=== PATIENT | female | born 1930 | race Asian ===

== ENCOUNTER 2019-03-27 15:57 | Inpatient (IN) | payer OTHER, BC ==
[~2019-03-27] VITALS: Ht 149.9 cm; Wt 43.3 kg
[2019-03-27] MEDS ORDERED: LORazepam 2 MG/ML VIAL IVP ONE (17:45)
[2019-03-27 17:56] LABS: BASOPHILS # (AUTO) 0.1 K/uL (0.0-0.2); BASOPHILS % (AUTO) 1.1 % (0.0-2.0); EOSINOPHILS # (AUTO) 0.2 K/uL (0.0-0.4); EOSINOPHILS % (AUTO) 2.4 % (0.0-4.0); HEMATOCRIT 39.1 % (36-48); HEMOGLOBIN 12.9 g/dL (12.0-16.0); LYMPHOCYTES # (AUTO) 1.5 K/uL (1.0-5.5); MEAN CORPUSCULAR HEMOGLOBIN 30 pg (27-31); MEAN CORPUSCULAR HGB CONC 33 % (32-36); MEAN CORPUSCULAR VOLUME 92 fL (79.0-98.0); MONOCYTES # (AUTO) 0.6 K/uL (0.0-1.0); MONOCYTES % (AUTO) 6.6 % (1.7-9.3); NEUTROPHILS % (AUTO) 73.9 % (40.0-70.0); PLATELET COUNT (AUTO) 358 K/uL (130-430); RED BLOOD CELL COUNT(AUTO) 4.27 MIL/uL (4.2-6.2); RED CELL DISTRIBUTION WIDTH 13.8 % (9.0-15.0); WHITE BLOOD COUNT (AUTO) 9.5 K/uL (4.8-10.8)
[2019-03-27 18:11] LABS: ANION GAP 8 (5-15); CALCIUM 9.9 mg/dL (8.4-11.0); CHLORIDE 104 mmol/L (98-107); CREATININE 0.95 mg/dL (0.55-1.30); GLUCOSE 106 mg/dL (70-99); POTASSIUM 3.9 mmol/L (3.5-5.1); SODIUM SERUM 137 mmol/L (136-145); UREA NITROGEN, BLOOD 16 mg/dL (8-21)
[2019-03-27 18:17] LABS: ALANINE AMINOTRANSFERASE 15 U/L (12-78); ASPARTATE AMINOTRANSFERASE 21 U/L (10-37); TOTAL BILIRUBIN 0.2 mg/dL (0.0-1.0)
[2019-03-27 18:18] LABS: ACETAMINOPHEN < 1 ug/mL (1-30); ALCOHOL, BLOOD < 3 mg/dL (<10)
--- NOTE | 2019-03-27 19:00 | NUR ---
Patient to ER bed 02 to gown for evaluation. Side rails up.
--- NOTE | 2019-03-27 19:03 | NUR ---
Pt brought by ambulance, Alert x1 , combative, pt presents to ER for medical clearance prior transfering to [facility] due to sych, pt arrived in restrains , skin pink and warm, cap refill <3,VSS
--- NOTE | 2019-03-27 19:05 | NUR ---
100 CC CLEAR URINE COLLECTED.
--- NOTE | 2019-03-27 19:06 | NUR ---
Dr Antonio at bedside examining patient
[2019-03-27 19:33] LABS: BARBITURATE, URINE NEGATIVE (NEG <=200); BENZODIAZEPINE, URINE POSITIVE (NEG <=150); CANNABINOID, URINE NEGATIVE (NEG <=50); COCAINE, URINE NEGATIVE (NEG <=150); METHAMPHETAMINES SCREEN,URINE NEGATIVE (NEG <=500); OPIATE, URINE NEGATIVE (NEG <=100); PHENCYCLIDINE SCREEN,URINE NEGATIVE (NEG <=25); UR TRICYCLIC ANTIDEPRESSANTS NEGATIVE (NEG <=300); URINE AMPHETAMINE NEGATIVE (NEG <=500); URINE METHADONE NEGATIVE (NEG <=200); URINE OXYCODONE SCREEN NEGATIVE (NEG <=100); URINE PROPOXYPHENE SCREEN NEGATIVE (NEG <=300)
--- NOTE | 2019-03-27 20:30 | NUR ---
Pt resting in ed bed comfortably, agitated, yelling inconsolably and intermittently. Pulses and circulation checked WNL.
--- NOTE | 2019-03-27 21:00 | NUR ---
Pt resting in ed bed comfortably, agitated, yelling inconsolably and intermittently. Pulses and circulation checked WNL.
--- NOTE | 2019-03-27 21:30 | NUR ---
Pt resting in ed bed comfortably, agitated, yelling inconsolably and intermittently. Pulses and circulation checked WNL.
[2019-03-27] MEDS: NORMAL SALINE 5 ML DISP.SYRIN IVF SCH (22:00)
--- NOTE | 2019-03-27 22:00 | NUR ---
Pt resting in ed bed comfortably, agitated, yelling inconsolably and intermittently. Pulses and circulation checked WNL.
[2019-03-27] MEDS ORDERED: MEMA5TAB PO (22:27)
[2019-03-27] MEDS ORDERED: DONE10TA44 PO (22:27)
[2019-03-27] MEDS ORDERED: AMLO2.5T2 PO (22:27)
[2019-03-27] MEDS ORDERED: OMEG1CAP PO (22:27)
[2019-03-27] MEDS ORDERED: ALBU2.5V7 INH (22:27)
[2019-03-27] MEDS ORDERED: LIP10 PO (22:27)
[2019-03-27] MEDS ORDERED: MORP15TA PO (22:27)
[2019-03-27] MEDS ORDERED: NA P133E41 RC (22:30)
[2019-03-27] MEDS ORDERED: DOCU-144 PO (22:30)
--- NOTE | 2019-03-27 22:45 | NUR ---
Pt soiled self. Linens and gown changed, pt cleaned.
--- NOTE | 2019-03-27 23:09 | NUR ---
pt moved to bed 2.
--- NOTE | 2019-03-27 23:10 | NUR ---
# 20 gauge angiocath placed to LAC. Use of asceptic technique. Opsite placed over site. Blood return noted. Blood for lab drawn from site. Flushed with 10 cc of normal saline. No evidence of infiltration noted. Patient tolerated well.
--- NOTE | 2019-03-27 23:32 | NUR ---
# 16 FR [place] catheter with use of sterile technique. Immediate return of 100 cc pale flocculent urine noted. Bedside drainage bag placed below level of bladder. Urine sample collected and sent to lab. Pt tolerated procedure well, pt continues to exhibit agitation and combativeness. Patient unable to toilet self. MD Order recieved
[2019-03-28] VITALS (7 sets, daily range): BP systolic 91–161
--- NOTE | 2019-03-28 00:32 | NUR ---
Pt resting in ED bed. Restraints released and patient moved through full range of motion. Good pulse, motor, sensory intact to all extremeties. Patient attempted to pinch and scratch staff. Pt Agitated.
--- NOTE | 2019-03-28 00:35 | NUR ---
Patient will be admitted to care of [facility]. Admitted to Med/Surg unit. Will go to room 121B. Belongings list completed. Complete and up to date summary report printed. Report to be given at bedside with opportunity for questions.
--- NOTE | 2019-03-28 00:36 | NUR ---
Transfer to [facility]. IV present no sign or symptom of infiltration.
--- NOTE | 2019-03-28 01:05 | NUR ---
ADMISSION NOTE Received patient from ER via gurney. Patient admitted with diagnosis of Left Knee Sepsis, Encephalopathy & Schizoprenia. Patient is awake, alert, oriented X 1. Patient oriented to hospital room, call light, toileting, pain management and safety-teach back done. Patient informed that BEAR Lee will be primary nurse and that their room number is 121B. Personal belongings checked and Belongings List documented. Call light within reach.
--- NOTE | 2019-03-28 01:50 | NUR ---
CONSULT: CALLED FOR DR. JOLEEN HOLLAND I SPOKE WITH JOSEPH OCHOA REASON FOR CONSULT: LEFT KNEE SEPSIS REQUESTING CONSULT: DR. BERNARD RN INTERVENTIONAL PHONE NUMBER: [phone]
--- NOTE | 2019-03-28 01:52 | NUR ---
CONSULT: CONSULT CALLED FOR DR. NORRIS I SPOKE WITH JOSEPH OCHOA REASON FOR CONSULT: PSYCHIATRIC EVALUATION REQUESTING CONSULT: DR. BERNARD POULTRY PICKING MACHINE TENDER PHONE NUMBER: [phone]
[2019-03-28] MEDS: NORMAL SALINE 5 ML DISP.SYRIN IVF SCH ×3 (06:00→21:13)
[2019-03-28 06:39] LABS: BASOPHILS # (AUTO) 0.1 K/uL (0.0-0.2); BASOPHILS % (AUTO) 1.3 % (0.0-2.0); EOSINOPHILS # (AUTO) 0.3 K/uL (0.0-0.4); HEMATOCRIT 35.4 % (36-48); HEMOGLOBIN 11.9 g/dL (12.0-16.0); LYMPHOCYTES # (AUTO) 1.6 K/uL (1.0-5.5); LYMPHOCYTES % (AUTO) 18.6 % (20.5-51.5); MEAN CORPUSCULAR HEMOGLOBIN 30 pg (27-31); MEAN CORPUSCULAR HGB CONC 34 % (32-36); MEAN CORPUSCULAR VOLUME 90 fL (79.0-98.0); MONOCYTES # (AUTO) 0.7 K/uL (0.0-1.0); MONOCYTES % (AUTO) 7.5 % (1.7-9.3); NEUTROPHILS # (AUTO) 6.1 K/uL (1.8-7.7); NEUTROPHILS % (AUTO) 69.6 % (40.0-70.0); PLATELET COUNT (AUTO) 362 K/uL (130-430); RED BLOOD CELL COUNT(AUTO) 3.95 MIL/uL (4.2-6.2); RED CELL DISTRIBUTION WIDTH 13.8 % (9.0-15.0); WHITE BLOOD COUNT (AUTO) 8.7 K/uL (4.8-10.8)
[2019-03-28 06:57] LABS: ANION GAP 4 (5-15); CALCIUM 9.1 mg/dL (8.4-11.0); CHLORIDE 104 mmol/L (98-107); CREATININE 0.96 mg/dL (0.55-1.30); GLUCOSE 84 mg/dL (70-99); POTASSIUM 3.4 mmol/L (3.5-5.1); SODIUM SERUM 137 mmol/L (136-145); UREA NITROGEN, BLOOD 13 mg/dL (8-21); VANCOMYCIN,RANDOM 21.4 ug/mL
--- NOTE | 2019-03-28 07:45 | NUR ---
Neurovascular/safety Patient awake/alert oriented to her name nod rarely talk but clear calm , on bilateral risk restraints, release on cleaning repositioned , left leg with cast dry/clean , kept elevated to pillow able to wiggle toes warm to touch denies any pain, safety/fall precaution initiated.
--- NOTE | 2019-03-28 10:25 | NUR ---
Nutrition Update Alexis Scale 15 noted. Pt admitted for L knee sepsis, schizophrenia, encephalopathy. Diet: [facility] BMI: 19.3 kg/m2 RD to follow per nutrition care standards.
[2019-03-28] MEDS ORDERED: MEMANTINE HCL 5 MG TABLET PO ONE (10:30)
[2019-03-28] MEDS ORDERED: MORPHINE SULFATE 30 MG Immediate Release TABLET PO SCH (10:30)
[2019-03-28] MEDS ORDERED: [UNRECOGNIZED DRUG - OTHER] PO SCH (10:30)
[2019-03-28] MEDS ORDERED: ALBUTEROL SULFATE 0.083% 2.5 MG/3 ML VIAL.NEB INH PRN (10:30)
[2019-03-28] MEDS ORDERED: DOCUSATE SODIUM 100 MG CAPSULE PO ONE (10:30)
[2019-03-28] MEDS ORDERED: OMEGA PO SCH (10:30)
[2019-03-28] MEDS ORDERED: amLODIPine BESYLATE 5 MG TABLET PO ONE (10:30)
[2019-03-28] MEDS ORDERED: SODIUM PHOSPHATE,MONO-DIBASIC 133 ML ENEMA RC SCH (10:30)
[2019-03-28] MEDS ORDERED: FISH OIL PO SCH (10:30)
[2019-03-28] MEDS ORDERED: FATTY ACIDS PO SCH (10:30)
[2019-03-28] MEDS: VANCOMYCIN HCL 500 MG in NS 100 ML IV SCH (10:50)
--- NOTE | 2019-03-28 11:30 | NUR ---
Due antibiotic completed with out adverse reaction,left leg kept elevated to pillow with cast dry/clean able to wiggle toes no swelling warm to touch denies any pain.
--- NOTE | 2019-03-28 13:00 | NUR ---
Patient is calm and cooperative released from restraints for lunch eat by herself no aspiration with good appetite, perineal care given kept dry/clean , skin cream barrier applied to sacral area no pressure sore , repositioned.
--- NOTE | 2019-03-28 17:30 | NUR ---
Patient awake/calm , granddaughter Zoe at the bedside feeding home foods tolerates well, then patient slept , safety/fall precaution initiated, on bilateral soft wrist restraints.
--- NOTE | 2019-03-28 18:42 | NUR ---
CONSULTATION PAGED/CALLED Reason for Consultation: post patellar fx with cast, infected left knee Person Who was Notified: Alma Consulting Physician: Dr. Gambino; Dr. Dockery Mold Carpenter Specialty: ortho Ordering Physician: Dr. Obando
--- NOTE | 2019-03-28 19:50 | NUR ---
PM SHIFT ASSESSMENT Recieved patient lying in bed, aox2, vital signs stable, denies any pain or discomfort at this time, IV line to left ac intact and patent, saline locked, patient has bilateral wrist restraints, patient is quiet and cooperative at this time, repositioned for comfort, fall and isolation precautions in place, will monitor.
[2019-03-28] MEDS: ATORVASTATIN 10 MG TABLET PO SCH (21:13)
[2019-03-28] MEDS: DONEPEZIL HCL 5 MG TABLET (ARICEPT) PO SCH (21:13)
[2019-03-28] MEDS: DOCUSATE SODIUM 100 MG CAPSULE PO SCH (21:13)
[2019-03-28] MEDS: MEMANTINE HCL 5 MG TABLET PO SCH (21:13)
--- NOTE | 2019-03-28 21:30 | NUR ---
RN ROUNDS/MED PASS Patient awake, denies any pain or discomfort at this time, due medications administered, aspiration precautions maintained, paient repositioned for comfort, bilateral wrist restraints in place, will monitor.
--- NOTE | 2019-03-28 23:38 | NUR ---
RN ROUNDS Patient asleep, breathing is even and unlabored, vitals stable, repositioned for comfort, safety measures in place, will closely monitor.
[2019-03-29 01:40] VITALS: BP_SYST 126
--- NOTE | 2019-03-29 01:51 | NUR ---
RN ROUNDS Patient asleep, breathing is even and unlabored, repositioned for comfort, bilateral wrist restraints in place, safety measures in place, will closely monitor.
--- NOTE | 2019-03-29 04:07 | NUR ---
RN ROUNDS Patient continues to sleep, breathing is even and unlabored, repositioned for comfort, bilateral wrist restraints in place, safety measures in place, will closely monitor.
--- NOTE | 2019-03-29 05:48 | NUR ---
RN ROUNDS Patient awake, denies any pain or discomfort, compliant, hygiene care provided, repositioned for comfort, safety measures in place, will closely monitor.
[2019-03-29 06:15] LABS: BASOPHILS # (AUTO) 0.1 K/uL (0.0-0.2); BASOPHILS % (AUTO) 1.1 % (0.0-2.0); EOSINOPHILS # (AUTO) 0.4 K/uL (0.0-0.4); EOSINOPHILS % (AUTO) 4.4 % (0.0-4.0); HEMATOCRIT 33.3 % (36-48); LYMPHOCYTES % (AUTO) 21.3 % (20.5-51.5); MEAN CORPUSCULAR HEMOGLOBIN 30 pg (27-31); MEAN CORPUSCULAR HGB CONC 33 % (32-36); MEAN CORPUSCULAR VOLUME 91 fL (79.0-98.0); MONOCYTES # (AUTO) 0.8 K/uL (0.0-1.0); MONOCYTES % (AUTO) 8.2 % (1.7-9.3); PLATELET COUNT (AUTO) 341 K/uL (130-430); RED BLOOD CELL COUNT(AUTO) 3.68 MIL/uL (4.2-6.2); RED CELL DISTRIBUTION WIDTH 13.5 % (9.0-15.0); WHITE BLOOD COUNT (AUTO) 9.3 K/uL (4.8-10.8)
[2019-03-29 06:25] LABS: ANION GAP 4 (5-15); CALCIUM 8.8 mg/dL (8.4-11.0); CHLORIDE 104 mmol/L (98-107); CREATININE 1.99 mg/dL (0.55-1.30); GLUCOSE 88 mg/dL (70-99); POTASSIUM 3.6 mmol/L (3.5-5.1); SODIUM SERUM 134 mmol/L (136-145); UREA NITROGEN, BLOOD 36 mg/dL (8-21)
--- NOTE | 2019-03-29 07:45 | NUR ---
Ortho consult called: for Dr. Gambino, regarding post patellar fracture/infected, ordered by Dr. Gallardo, spoke w/ Starr. Exchange spoke with Dr. Gambino and informed me he has surgery schedule till 1230, but he will come see the patient.
[2019-03-29 08:20] VITALS: BP_SYST 164
--- NOTE | 2019-03-29 08:20 | NUR ---
OPENING NOTE PATIENT RESTING IN BED, A&OX1, REORIENTED TO PLACE, TIME AND EVENT, ASSESSMENT COMPLETE, CONTINUING TO MONITORING CALL LIGHT WITHIN REACH, BED IN LOWEST POSITION, THREE SIDE RAILS UP, BED ALARM ON, FALL AND ASPIRATION PRECAUTIONS IN PLACE, ISOLATION PRECAUTIONS IN PLACE, RESTRAINTS IN PLACE.
[2019-03-29] MEDS: DOCUSATE SODIUM 100 MG CAPSULE PO SCH ×2 (09:00→20:45)
[2019-03-29] MEDS: MEMANTINE HCL 5 MG TABLET PO SCH ×2 (09:00→20:45)
--- NOTE | 2019-03-29 09:00 | NUR ---
MEDICATIONS PATIENT RESTING IN BED, ADMINISTERED MEDICATIONS, PATIENT TOLERATED WELL, CONTINUING TO MONITOR, CALL LIGHT WITHIN REACH, BED IN LOWEST POSITION, THREE SIDE RAILS UP, BED ALARM ON, BED CLOSE TO NURSING STATION, FALL, ASPIRATION, AND ISOLATION PRECAUTIONS IN PLACE, RESTRAINTS IN PLACE.
--- NOTE | 2019-03-29 09:00 | NUR ---
DISTRICT AGENT: MORNING MEDS GIVEN, PER ORDERED BY Piper, TOLERATED WELL, PT IS [place]GR[place], BUT UNDERSTANDS SOME KYRGYZ, ABLE TO COMMUNICATE NEEDS, CALL LIGHT REMAINS WITHIN REACH, WILL CONT' TO MONITOR AND ASSESS.
[2019-03-29] MEDS: amLODIPine BESYLATE 5 MG TABLET PO SCH (09:02)
[2019-03-29] MEDS: VANCOMYCIN HCL 500 MG in NS 100 ML IV SCH (10:42)
[2019-03-29] MEDS: risperiDONE 0.25 MG TABLET (RisperDAL) PO SCH (10:42)
--- NOTE | 2019-03-29 10:55 | NUR ---
ROUNDS/ MEDICATIONS PATIENT RESTING IN BED, CALM, NO SIGNS OF DISTRESS, ADMINISTERED MEDICATION PER MD ORDER, PATIENT TOLERATED WELL, IV LINE IS PATENT AND INFUSING WELL, CONTINUING TO MONITOR, CALL LIGHT WITHIN REACH, BED AT LOWEST POSITION, BED ALARM ON, BED CLOSE TO NURSING STATION, FALL, ASPIRATION, AND ISOLATION PRECAUTIONS IN PLACE, RESTRAINTS IN PLACE.
--- NOTE | 2019-03-29 11:00 | NUR ---
Physical Therapy order has been received and the chart reviewed. Spoke with the RN. Awaiting ortho consult for weight bearing status and further treatment plan.
[2019-03-29] MEDS: NORMAL SALINE 5 ML DISP.SYRIN IVF SCH ×3 (11:25→20:45)
--- NOTE | 2019-03-29 12:00 | NUR ---
NURSES NOTES: PT REMAINS STABLE, RESTRAINTS CHECKED FOR COMFORT AND POSITION, PULSES PALPABLE, NO S/S OF DISTRESS, WILL CONT' TO MONITOR AND ASSESS.
--- NOTE | 2019-03-29 12:08 | NUR ---
PATIENT RESTING QUIETLY IN BED, NO SIGNS OF DISTRESS, CONTINUING TO MONITOR, BED IN LOWEST POSITION, THREE SIDE RAILS UP, CALL LIGHT WITHIN REACH, BED ALARM ON, FALL, ASPIRATION AND ISOLATION PRECAUTIONS IN PLACE.
[2019-03-29 12:11] VITALS: BP_SYST 146
--- NOTE | 2019-03-29 13:29 | NUR ---
RN rounds patient resting in bed, calm at this time, finished eating lunch, no other needs at this time, continuing to monitor, bed in lowest position, three side rails up, bed alarm on, bed close to nursing station, call light within reach, fall, aspiration and isolation precautions in place.
--- NOTE | 2019-03-29 13:36 | NUR ---
Nutrition Assessment (short note d/t high patient load) A - RD reviewed pertinent nutrition-related info via EMR (physician notes/nursing notes/labs/meds/nursing care trends/care activity). Admission Dx: L knee sepsis, schizophrenia, encephalopathy PMH: dementia, HTN, depression, hallucination, schizophrenia, CKD, COPD, cerebral ischemia, anxiety per physician notes Current Diet Order/Nutrition Support: CCHO x 1 day Ht: 59"/4'11" Wt: 95#/43 kg IBW: 98#/45 kg %IBW: 97% UBW: N/A %UBW: N/A BMI: 19.3 kg/m2 (underweight, low for geriatric age) Subjective Info: Pt was seen resting in bed, covered in blankets at time of RD visit. Pt was confused, and unable to answer RD verbal interview questions. Bedscale wt taken: 98# -- closely consistent w/ documented wt. Per RN, pt has been eating well, but requires assistance w/ meals. RN also reported that pt has an infected L knee s/p old Sx. Pt may require additional nutrition for optimal healing. Per EMR, PO intake records indicate 87% average PO intakes x3 meals. RN reported that pt has no chewing/swallowing difficulty. Pt is not appropriate for nutrition education. ESTIMATED NUTRITIONAL NEEDS CALORIES/DAY: 1909-0104 kcal/day (30-35 kcal/kg CBW for infection) PROTEIN/DAY: 52-65 gm/day (1.2-1.5 gm/kg CBW for infection) FLUID/DAY: 1-1.3 L/day (25-30 ml/kg CBW for geriatric maintenance) D - Increased nutritional needs related to metabolic demands as evidenced by estimated nutritional requirements for infection. I - Recommend CCHO diet w/ Glucerna BID (ONS provides 440 kcal/day, 20 gm protein/day) M - Monitor appetite and PO intakes w/ goal of pt meeting at least 85% of estimated nutritional needs, labs trending WNL, normal GI function, and skin integrity/wt maintenance E - Low Risk; F/U within 7 days
--- NOTE | 2019-03-29 13:37 | NUR ---
SS NOTES: HOSPICE MASSAGE THERAPIST was referred to do a collateral for DCP and assessment. HOSPICE MASSAGE THERAPIST phoned grand daughter Zoe Reed @ [phone] (point of contact). Pt is an 88 y/o Ni[place] female who came from [facility]. Pt has been staying at the [facility] since 03/16/19 and prior to that the patient was a resident at [facility] for 1-2 years. Pt was transferred to [facility] due to needing an isolation room, wound care, cast and IV. Per grand daughter pt has SSI of $700's/month. Pt does not have an advanced directive and is not conserved. Per grand dtr, pt does not have schizophrenia but has dementia and is taking Seroquel for it. Grand daughter stated pt speaks Niuean only and prefers for pt to be transferred to facilities (around [facility], [facility]) with the same Ni[place]an population due to language barrier.
--- NOTE | 2019-03-29 13:45 | NUR ---
Dietitian Recommendations * Recommend [facility] diet w/ Glucerna BID (ONS provides 440 kcal/day, 20 gm protein/day) LP, RD Please refer to Nutrition Assessment for details.
[2019-03-29 14:16] LABS: BASOPHILS # (AUTO) 0.1 K/uL (0.0-0.2); BASOPHILS % (AUTO) 1.3 % (0.0-2.0); EOSINOPHILS # (AUTO) 0.3 K/uL (0.0-0.4); EOSINOPHILS % (AUTO) 3.5 % (0.0-4.0); HEMATOCRIT 34.3 % (36-48); HEMOGLOBIN 11.4 g/dL (12.0-16.0); LYMPHOCYTES # (AUTO) 1.6 K/uL (1.0-5.5); MEAN CORPUSCULAR HEMOGLOBIN 30 pg (27-31); MEAN CORPUSCULAR HGB CONC 33 % (32-36); MEAN CORPUSCULAR VOLUME 90 fL (79.0-98.0); MONOCYTES # (AUTO) 0.7 K/uL (0.0-1.0); MONOCYTES % (AUTO) 7.7 % (1.7-9.3); NEUTROPHILS # (AUTO) 6.4 K/uL (1.8-7.7); NEUTROPHILS % (AUTO) 70.5 % (40.0-70.0); PLATELET COUNT (AUTO) 338 K/uL (130-430); RED BLOOD CELL COUNT(AUTO) 3.82 MIL/uL (4.2-6.2); WHITE BLOOD COUNT (AUTO) 9.1 K/uL (4.8-10.8)
--- NOTE | 2019-03-29 14:39 | NUR ---
RN rounds patient resting in bed, awake, calm, denies pain, provided with water, patient tolerated well, aspiration precautions in place, no other needs at this time, continuing to monitor, bed in lowest position, three side rails up, bed alarm on, bed close to nursing station, fall, aspiration and isolation precautions in place.
--- NOTE | 2019-03-29 15:00 | NUR ---
NURSES NOTES: PT REMAINS STABLE, AWAKE INTERMITTENTLY, RESTRAINTS REMOVED FOR COMFORT, REPOSITIONED AT THIS TIME, SKIN INTACT, NO INDICATION OF PAIN, WILL CONT' TO MONITOR AND ASSESS.
[2019-03-29 16:00] VITALS: BP_SYST 157
--- NOTE | 2019-03-29 16:08 | NUR ---
RN rounds Patient resting in bed, awake, calm, no other needs at this time, continuing to monitor, bed in lowest position, three side rails up, bed alarm on, bed close to nursing station, fall, aspiration and isolation precautions in place.
--- NOTE | 2019-03-29 19:18 | NUR ---
Closing Note Patient resting in bed, awake, all needs met, no signs of distress, no pain, will endorse report to NOC shift nurse, bed in lowest position, bed alarm on, call light within reach, three side rails up, bed close to nursing station, fall, aspiration and seizure precautions in place, isolation precautions on place.
--- NOTE | 2019-03-29 19:50 | NUR ---
Initial Notes Received handoff report from offgoing nurse at the bedside. Patient is AAOx1, resting in bed. No SOB, no acute distress, no signs of pain or facial grimacing noted. Noted patient with bowel and urinary incontinency. Provided incontinence care as needed. Patient able to turn self. Patient is now clean and dry, resting comfortably in bed. Bed is locked, lowest position, 2x side rails up, bed alarm is on. Call light within reach. Encouraged patient to call for assistance.
--- NOTE | 2019-03-29 19:55 | NUR ---
Received in repot that the patient had a keller catheter that was removed on 03/28/2019. Restraints were also discontinued on 03/29/2019 1245.
[2019-03-29 20:00] VITALS: BP_SYST 140
[2019-03-29] MEDS: ATORVASTATIN 10 MG TABLET PO SCH (20:45)
[2019-03-29] MEDS: DONEPEZIL HCL 5 MG TABLET (ARICEPT) PO SCH (20:45)
--- NOTE | 2019-03-29 22:15 | NUR ---
Patient resting comfortably in bed, AAOx1. No SOB, no acute distress, no complaints of pain. Assisted patient to turn and reposition. Call light within reach. Encouraged to call for assistance.
--- NOTE | 2019-03-30 00:26 | NUR ---
Patient is resting comfortably in bed, eyes closed. Breathing even and unlabored. Visible chest rise and fall noted. No SOB, no acute distress, no signs of pain or facial grimacing noted. Bed is locked, lowest position, 2x side rails up, bed alarm is on. Call light within reach.
[2019-03-30 01:36] VITALS: BP_SYST 130
--- NOTE | 2019-03-30 02:29 | NUR ---
PATIENT RESTING COMFORTABLY IN BED, EYES CLOSED. BREATHING EVEN AND UNLABORED WITH VISIBLE CHEST RISE AND FALL NOTED. NO SOB, NO ACUTE DISTRESS, NO SIGNS OF PAIN OR FACIAL GRIMACING NOTED. BED IS LOCKED, LOWEST POSITION, 2X SIDE RAILS UP, BED ALARM IS ON. CALL LIGHT IS WITHIN REACH.
--- NOTE | 2019-03-30 04:28 | NUR ---
Patient had an episode of bowel and urinary incontinence. Provided incontinence care. Patient is now clean and dry, resting comfortably in bed. No SOB, no acute distress, no complaints of pain at this time. Call light within reach. Encouraged to call for assistance.
[2019-03-30] MEDS: NORMAL SALINE 5 ML DISP.SYRIN IVF SCH ×3 (05:15→21:17)
--- NOTE | 2019-03-30 06:37 | NUR ---
Closing Notes Patient is resting comfortably in bed, eyes closed. Breathing even and unlabored, visible chest rise and fall noted. No SOB, no acute distress, no signs of pain or facial grimacing noted. Bed is locked, lowest position, 2x side rails up. Call light is within reach. Fall, safety precautions maintained. All needs have been met during this shift. Will endorse care to oncoming dayshift nurse.
[2019-03-30 06:42] LABS: BASOPHILS # (AUTO) 0.1 K/uL (0.0-0.2); EOSINOPHILS # (AUTO) 0.3 K/uL (0.0-0.4); HEMATOCRIT 33.4 % (36-48); HEMOGLOBIN 11.3 g/dL (12.0-16.0); LYMPHOCYTES # (AUTO) 1.4 K/uL (1.0-5.5); LYMPHOCYTES % (AUTO) 15.3 % (20.5-51.5); MEAN CORPUSCULAR HEMOGLOBIN 30 pg (27-31); MEAN CORPUSCULAR HGB CONC 34 % (32-36); MEAN CORPUSCULAR VOLUME 90 fL (79.0-98.0); MONOCYTES # (AUTO) 0.8 K/uL (0.0-1.0); MONOCYTES % (AUTO) 8.5 % (1.7-9.3); NEUTROPHILS # (AUTO) 6.8 K/uL (1.8-7.7); NEUTROPHILS % (AUTO) 72.2 % (40.0-70.0); PLATELET COUNT (AUTO) 328 K/uL (130-430); RED BLOOD CELL COUNT(AUTO) 3.73 MIL/uL (4.2-6.2); RED CELL DISTRIBUTION WIDTH 13.8 % (9.0-15.0); WHITE BLOOD COUNT (AUTO) 9.3 K/uL (4.8-10.8)
[2019-03-30 07:35] LABS: ALANINE AMINOTRANSFERASE 22 U/L (12-78); ALBUMIN 2.6 g/dL (3.4-4.8); ANION GAP 2 (5-15); ASPARTATE AMINOTRANSFERASE 24 U/L (10-37); CALCIUM 8.7 mg/dL (8.4-11.0); CHLORIDE 103 mmol/L (98-107); CREATININE 2.21 mg/dL (0.55-1.30); GLUCOSE 93 mg/dL (70-99); POTASSIUM 3.7 mmol/L (3.5-5.1); SODIUM SERUM 132 mmol/L (136-145); TOTAL BILIRUBIN 0.4 mg/dL (0.0-1.0); UREA NITROGEN, BLOOD 39 mg/dL (8-21)
[2019-03-30] MEDS: LINEZOLID 300 ML IV SCH ×2 (08:14→20:47)
[2019-03-30] MEDS: MEMANTINE HCL 5 MG TABLET PO SCH ×2 (08:14→20:47)
[2019-03-30] MEDS: amLODIPine BESYLATE 5 MG TABLET PO SCH (08:15)
[2019-03-30] MEDS: risperiDONE 0.25 MG TABLET (RisperDAL) PO SCH (08:15)
--- NOTE | 2019-03-30 08:15 | NUR ---
Opening note patient resting in bed, a/ox1, reoriented to place, time and event, assessment complete, IV line is patent and infusing well, neurovascular check complete, educated the patient recreation program coordinator light system, she nodded and pointed to the red button on the call light, bed in lowest position, three side rails up, bed alarm on, bed close to nursing station, fall, aspiration, and isolation precautions in place, continuing to monitor.
--- NOTE | 2019-03-30 08:20 | NUR ---
Medications administered by Eliana SIFUENTES, continuing to monitor the patient, bed in lowest position, three side rails up, bed alarm on, bed close to nursing station, fall, aspiration and isolation precautions in place.
[2019-03-30] MEDS: DOCUSATE SODIUM 100 MG CAPSULE PO SCH ×2 (09:00→20:47)
--- NOTE | 2019-03-30 10:30 | NUR ---
Patient attempting to get out bed patient becoming agitated, trying to get out bed, assisted patient with charge nurse Eliana SIFUENTES, to the bedside commode, patient tolerated well, assisted back into bed, bed in lowest position, three side rails up, bed alarm on, bed close to nursing station, fall, aspiration and isolation precautions in place.
--- NOTE | 2019-03-30 12:11 | NUR ---
Patient attempting to get out bed patient trying to get out of bed to use the commode, patient is unsafe to ambulate, patient is getting agitated at this time, continuing to reorient the patient, Dr. Obando was paged for orders.
[2019-03-30] MEDS ORDERED: LORazepam 2 MG/ML VIAL IVP ONE (12:30)
--- NOTE | 2019-03-30 12:34 | NUR ---
Ativan administered per MD orders, IV line is patent and infusing well, continuing to monitor the patient, bed in lowest position, three side rails up, bed alarm on, bed close to nursing station, fall, aspiration and isolation precautions in place.
[2019-03-30 12:41] VITALS: BP_SYST 149
--- NOTE | 2019-03-30 14:07 | NUR ---
RN rounds patient resting in bed, awake, being fed lunch, aspiration precautions in place, patient is calm now, continuing to monitor the patient, bed in lowest position, three side rails up, bed alarm on, bed close to nursing station, call light within reach, fall, isolation precautions in place.
--- NOTE | 2019-03-30 15:38 | NUR ---
RN rounds patient resting in bed, awake, calm at this time, repositioned patient, continuing to monitor, bed in lowest position, three side rails up, bed alarm on, bed close to nursing station, fall, aspiration and isolation precautions in place.
[2019-03-30 16:30] VITALS: BP_SYST 137
--- NOTE | 2019-03-30 16:46 | NUR ---
Patient agitated and attempting to get out of bed, patient is a fall risk and is attempting to ambulate at this time, called MD for restraints orders, orders noted and carried out, attempted to call the family, patient's granddaughter Zoe regarding restraints education, no answer at this time, will follow up as needed.
--- NOTE | 2019-03-30 16:53 | NUR ---
MADE A F/U CALL TO ORTHO CONSULT DR BARCLAY BLOCK SAW OPERATOR FOR DR JULIAN, RE: POST PATELLA FX, INFECTED KNEE. SPOKE TO NADIYA.
--- NOTE | 2019-03-30 17:06 | NUR ---
ORTHO CONSULT DR JULIAN CALLED BACK AND WILL SEE PT TOMORROW 03/31/19 @ 0930 AM.
--- NOTE | 2019-03-30 18:05 | NUR ---
RN rounds patient resting in bed, awake, attempting to get out bed when restraints are removed for about 5 minutes, assisted patient to reposition herself, checked and patient is not soiled at this time, continuing to monitor, bed in lowest position, three side rails up, bed alarm on, bed close to nursing station, fall, aspiration and isolation precautions in place.
--- NOTE | 2019-03-30 18:41 | NUR ---
Closing note patient resting in bed, restraints in placed, no signs of injury or skin breakdown, patient is calm at this time, all needs met, will endorse report to NOC shift nurse, bed in lowest position, three side rails up, bed alarm on, bed close to nursing station, fall, aspiration and isolation precautions in place.
[2019-03-30] MEDS: ATORVASTATIN 10 MG TABLET PO SCH (20:47)
[2019-03-30] MEDS: DONEPEZIL HCL 5 MG TABLET (ARICEPT) PO SCH (20:47)
[2019-03-30 21:20] VITALS: BP_SYST 200
--- NOTE | 2019-03-30 21:20 | NUR ---
Opening notes Pt awake, confused, agitated trying to get out of bed. Kole wrists restraints on. Neurochecks intact. L. long leg splint intact, pt able to lift leg up. Kole legs elevated on pillows. IV L. AC 20G clear and patent. Bed low, locked, siderails up, bed alarm on. Will continue to monitor pt closely.
[2019-03-30] MEDS: cloNIDine HCL 0.1 MG TABLET PO PRN (21:29)
--- NOTE | 2019-03-30 21:29 | NUR ---
Catapres Pt agitated, BP elevated 200/106 HR 91. Catapres 0.1mg PO given as needed. Pt tolerated well. Will continue to monitor.
[2019-03-30 22:05] VITALS: BP_SYST 168
--- NOTE | 2019-03-31 00:10 | NUR ---
Rounds Pt awake, talking, restless. No s/s discomfort. Safety maintained. Bed low, locked, siderails up, bed alarm on. To monitor.
[2019-03-31 00:45] VITALS: BP_SYST 145
--- NOTE | 2019-03-31 03:10 | NUR ---
Rounds Pt asleep at this time, no s/s distress or discomfort. Bed low, locked, siderails up, bed alarm on. Safety maintained. To monitor pt closely.
--- NOTE | 2019-03-31 04:03 | NUR ---
Restless Pt awake, talking and restless, trying to get out of bed. Pt incontinent of urine. Pericare provided and Z-guard applied to buttocks. Reinforced restraints. Safety maintained. To monitor.
--- NOTE | 2019-03-31 06:50 | NUR ---
Closing notes Pt asleep, no s/s distress noted. Pt pulled out IV L. arm IV restart on CHARO 22G good blood return. Pt tolerated well. Pt incontinent of urine pericare provided. Bed low, locked, siderails up, bed alarm on. To endorse to AM nurse.
[2019-03-31 08:00] VITALS: BP_SYST 140
--- NOTE | 2019-03-31 08:00 | NUR ---
ASSUMPTION OF CARE: RECEIVED PT ASLEEP, AROUSED VIA VERBAL STIMULI, DX: RISK FOR INJURY, R/T L KNEE SEPSIS, VSS, POSITIONED IN BED WITH BILATERAL SOFT WRIST RESTRAINTS, APPEARS CALM, NO S/S OF DISTRESS OR DISCOMFORT, BREATH SOUNDS ARE CLEAR, BREATHING UNLABORED, IV SITE INTACT, PATENT, NO REDNESS OR SWELLING, CALL LIGHT PLACED WITHIN REACH, ROOM CLOSE TO NURSES STATION, WILL CONT' TO MONITOR AND ASSESS.
[2019-03-31 08:10] LABS: ANION GAP 6 (5-15); CALCIUM 9.2 mg/dL (8.4-11.0); CHLORIDE 103 mmol/L (98-107); CREATININE 2.12 mg/dL (0.55-1.30); GLUCOSE 90 mg/dL (70-99); POTASSIUM 4.2 mmol/L (3.5-5.1); SODIUM SERUM 136 mmol/L (136-145); UREA NITROGEN, BLOOD 34 mg/dL (8-21)
[2019-03-31 08:11] LABS: BASOPHILS # (AUTO) 0.1 K/uL (0.0-0.2); BASOPHILS % (AUTO) 0.9 % (0.0-2.0); EOSINOPHILS # (AUTO) 0.2 K/uL (0.0-0.4); HEMATOCRIT 33.9 % (36-48); HEMOGLOBIN 11.5 g/dL (12.0-16.0); LYMPHOCYTES # (AUTO) 0.9 K/uL (1.0-5.5); LYMPHOCYTES % (AUTO) 10.5 % (20.5-51.5); MEAN CORPUSCULAR HEMOGLOBIN 30 pg (27-31); MEAN CORPUSCULAR HGB CONC 34 % (32-36); MEAN CORPUSCULAR VOLUME 89 fL (79.0-98.0); MONOCYTES # (AUTO) 0.7 K/uL (0.0-1.0); NEUTROPHILS # (AUTO) 6.8 K/uL (1.8-7.7); NEUTROPHILS % (AUTO) 78.6 % (40.0-70.0); PLATELET COUNT (AUTO) 300 K/uL (130-430); RED BLOOD CELL COUNT(AUTO) 3.81 MIL/uL (4.2-6.2); RED CELL DISTRIBUTION WIDTH 13.7 % (9.0-15.0); WHITE BLOOD COUNT (AUTO) 8.7 K/uL (4.8-10.8)
[2019-03-31] MEDS: MEMANTINE HCL 5 MG TABLET PO SCH ×2 (08:33→21:16)
[2019-03-31] MEDS: risperiDONE 0.25 MG TABLET (RisperDAL) PO SCH (08:33)
[2019-03-31] MEDS: LINEZOLID 300 ML IV SCH ×2 (08:34→21:16)
[2019-03-31] MEDS: DOCUSATE SODIUM 100 MG CAPSULE PO SCH ×2 (08:34→21:16)
[2019-03-31] MEDS: amLODIPine BESYLATE 5 MG TABLET PO SCH (08:34)
[2019-03-31] MEDS: NORMAL SALINE 5 ML DISP.SYRIN IVF SCH ×4 (08:35→21:21)
--- NOTE | 2019-03-31 08:50 | NUR ---
PHYSICAL THERAPY EVALUATION PENDING DUE TO STILL AWAITING ORTHO CONSULT AND WEIGHT BEARING PRECAUTIONS. RN IN AGREEMENT.
--- NOTE | 2019-03-31 09:00 | NUR ---
ASSOCIATE DIRECTOR: MORNING MEDS GIVEN, PER ORDERED BY Piper, TOLERATED WELL, CALL LIGHT REMAINS WITHIN REACH, WILL CONT' TO MONITOR AND ASSESS.
[2019-03-31 11:00] VITALS: BP_SYST 140
--- NOTE | 2019-03-31 12:00 | NUR ---
NURSES NOTES: PT REMAINS STABLE, NO SIGNIFICANT CHANGES NOTED, WILL CONT' TO MONITOR AND ASSESS.
[2019-03-31 12:09] VITALS: BP_SYST 121
--- NOTE | 2019-03-31 13:17 | NUR ---
Seen and examined by DR. Immanuel stark MD the plan is to change the CAST by Wednesday.
[2019-03-31 16:57] VITALS: BP_SYST 113
--- NOTE | 2019-03-31 18:00 | NUR ---
NURSES NOTES: PT REMAINS STABLE, NO SIGNIFICANT CHANGES NOTED, WILL CONT' TO MONITOR AND ASSESS.
--- NOTE | 2019-03-31 19:00 | NUR ---
END OF SHIFT: PT REMAINS STABLE AWAKE, RESPONSIVE TO STIMULI, NO DISTRESS NOTED, NEEDS MET, WILL ENDORSE TO GROUP WORKER NURSE.
[2019-03-31] MEDS ORDERED: [UNRECOGNIZED DRUG - OTHER] IV SCH (19:30)
--- NOTE | 2019-03-31 19:35 | NUR ---
OPENING NOTES PATIENT RECEIVED IN BED RESTING ABLE TO VERBALIZE NEEDS IN ROMANIAN. ON BILATERAL SOFT WRIST RESTRAINTS. IV INTACT DRY AND CLEAN. CALL LIGHT PLACED WITHIN REACH OF PATIENTS RIGHT HAND. BED ALARM ACTIVE. VISUALIZED LEFT LEG CAST. NO APPEARANCE OF PAIN OR RESPIRATORY DISTRESS. WILL MONITOR ON ROUNDS.
--- NOTE | 2019-03-31 19:41 | NUR ---
Paged Dr. Swan, Nicolas s/w Mindi
[2019-03-31 20:00] VITALS: BP_SYST 118
[2019-03-31] MEDS ORDERED: 0.45% NS 1,000 ML IV SCH (20:00)
[2019-03-31] MEDS: 0.45% NACL 1,000 ML IV SCH (21:15)
[2019-03-31] MEDS: DONEPEZIL HCL 5 MG TABLET (ARICEPT) PO SCH (21:16)
[2019-03-31] MEDS: ATORVASTATIN 10 MG TABLET PO SCH (21:16)
--- NOTE | 2019-03-31 22:07 | NUR ---
TOLERATED MEDICATIONS. REFUSING TO EAT ANY DINNER. WILL MONITOR ON ROUNDS.
[2019-03-31 23:17] LABS: BILIRUBIN,URINE NEGATIVE (NEGATIVE); BLOOD, URINE TRACE (NEGATIVE); CLARITY/URINE CLEAR (CLEAR); COLOR,URINE YELLOW (YELLOW); GLUCOSE,URINE NEGATIVE (NEGATIVE); KETONES,URINE NEGATIVE (NEGATIVE); LEUKOCYTE ESTERASE ,URINE NEGATIVE (NEGATIVE); NITRITE, URINE NEGATIVE (NEGATIVE); PROTEIN URINE TRACE (NEGATIVE); UROBILINOGEN,URINE 0.2 (0.2-1.0)
[2019-03-31 23:20] LABS: BACTERIA,URINE FEW /HPF (None Seen); WBC,URINE 0-3 /HPF (0-3)
--- NOTE | 2019-03-31 23:20 | NUR ---
IN AND OUT STRAIGHT CATH PROCEDURE DONE. PATIENT WAS UNCOOPERATIVE AND COMBATIVE. COLLECTED URINE SAMPLE. SAMPLE SENT TO LAB. AWAITING RESULTS.
--- NOTE | 2019-04-01 02:13 | NUR ---
PATIENT IN BED RESTING WITH NO APPEARANCE OF PAIN OR RESPIRATORY DISTRESS. CALL LIGHT WITHIN REACH WILL CONT TO MONITOR ON ROUNDS.
[2019-04-01 03:45] VITALS: BP_SYST 136
--- NOTE | 2019-04-01 04:21 | NUR ---
NO CHANGE IN CONDITION.
[2019-04-01] MEDS: NORMAL SALINE 5 ML DISP.SYRIN IVF SCH (06:31)
--- NOTE | 2019-04-01 06:42 | NUR ---
CLOSING NOTE PATIENT IN BED RESTING. NO RESPIRATORY DISTRESS. BED ALARM IS ACTIVE. SAFETY PRECAUTIONS IN PLACE. PATIENT CURRENTLY ON RESTRAINTS. SKIN AND IV INTACT WITH NO PAIN AT THE SITE. ALL NEEDS HAVE BEEN MET AND WILL ENDORSE CARE TO ONCOMING NURSE. CALL LIGHT WITHIN REACH.
[2019-04-01 08:00] VITALS: BP_SYST 137
--- NOTE | 2019-04-01 08:00 | NUR ---
ASSUMPTION OF CARE: RECEIVED PT A/A/OX 2-3, JAPANESE SPEAKING, BUT UNDERSTANDS MAORI, ABLE TO COMMUNICATED NEEDS. DX: RISK FOR INJURY, R/T SEPSIS, REPORT FROM ALTERATION TAILOR NURSE OF PT RESTLESSNESS AND TRYING TO REMOVE IV LINE AND TUBING, HAS ORDER FOR BILATERAL SOFT WRIST RESTRAINTS, CHECKED FOR PULSES, AND POSITIONING, L KNEE FX, VSS, LEFT KNEE HAS LONG CAST IN PLACE, NEURO CHECK DONE, PULSES PALPABLE, ABLE TO WIGGLE TOES, SKIN WARM, DRY TO TOUCH, BREATHING UNLABORED, BREATH SOUNDS ARE CLEAR, NO S/S OF DISTRESS, O2 SAT=97% ORA, DENIES HAVING PAIN, ORIENTED TO CALL LIGHT, PLACED WITHIN REACH, ROOM CLOSE TO NURSES STATION, FREQUENT ROUNDING BY NURSE AND STAFF, WILL CONT' TO MONITOR AND ASSESS.
[2019-04-01 08:07] LABS: BASOPHILS # (AUTO) 0.1 K/uL (0.0-0.2); EOSINOPHILS # (AUTO) 0.2 K/uL (0.0-0.4); EOSINOPHILS % (AUTO) 2.5 % (0.0-4.0); HEMATOCRIT 36.8 % (36-48); HEMOGLOBIN 12.5 g/dL (12.0-16.0); LYMPHOCYTES # (AUTO) 2.1 K/uL (1.0-5.5); LYMPHOCYTES % (AUTO) 23.7 % (20.5-51.5); MEAN CORPUSCULAR HEMOGLOBIN 31 pg (27-31); MEAN CORPUSCULAR HGB CONC 34 % (32-36); MEAN CORPUSCULAR VOLUME 90 fL (79.0-98.0); MONOCYTES # (AUTO) 0.7 K/uL (0.0-1.0); MONOCYTES % (AUTO) 7.8 % (1.7-9.3); NEUTROPHILS # (AUTO) 5.9 K/uL (1.8-7.7); PLATELET COUNT (AUTO) 297 K/uL (130-430); RED CELL DISTRIBUTION WIDTH 14.1 % (9.0-15.0)
--- NOTE | 2019-04-01 09:00 | NUR ---
HVAC RESIDENTIAL SERVICE TECHNICIAN: MORNING MEDS GIVEN, PER ORDERED BY Piper, TOLERATED WELL, CALL LIGHT REMAINS WITHIN REACH, WILL CONT' TO MONITOR AND ASSESS.
[2019-04-01] MEDS: amLODIPine BESYLATE 5 MG TABLET PO SCH (09:11)
[2019-04-01] MEDS: risperiDONE 0.25 MG TABLET (RisperDAL) PO SCH (09:12)
[2019-04-01] MEDS: MEMANTINE HCL 5 MG TABLET PO SCH ×2 (09:12→20:15)
[2019-04-01] MEDS: DOCUSATE SODIUM 100 MG CAPSULE PO SCH ×2 (09:12→20:15)
[2019-04-01] MEDS: LINEZOLID 300 ML IV SCH ×2 (09:12→20:14)
--- NOTE | 2019-04-01 12:00 | NUR ---
NURSES NOTES: PT REMAINS STABLE, NO SIGNIFICANT CHANGES NOTED, WILL CONT' TO MONITOR AND ASSESS.
[2019-04-01 12:44] LABS: ALANINE AMINOTRANSFERASE 15 U/L (12-78); ALBUMIN 2.7 g/dL (3.4-4.8); ANION GAP 8 (5-15); ASPARTATE AMINOTRANSFERASE 18 U/L (10-37); CALCIUM 8.8 mg/dL (8.4-11.0); CHLORIDE 99 mmol/L (98-107); CREATININE 2.42 mg/dL (0.55-1.30); GLUCOSE 120 mg/dL (70-99); PHOSPHORUS 4.7 mg/dL (2.7-4.5); POTASSIUM 4.1 mmol/L (3.5-5.1); SODIUM SERUM 133 mmol/L (136-145); TOTAL BILIRUBIN 0.3 mg/dL (0.0-1.0); UREA NITROGEN, BLOOD 39 mg/dL (8-21)
[2019-04-01 12:51] VITALS: BP_SYST 139
[2019-04-01 14:44] LABS: URINE SODIUM, RANDOM 31 mmol/L (40-220)
--- NOTE | 2019-04-01 15:41 | NUR ---
Supervisor Wire Rope Fabrication: Follow up re. D/C PLANNING INTERN spoke to rn relief charge. Pla who stated pt. is going to get a new cast on . The D/C barrier is pending ortho clearance.
[2019-04-01 16:59] VITALS: BP_SYST 118
--- NOTE | 2019-04-01 18:00 | NUR ---
END OF SHIFT: PT REMAINS STABLE AWAKE, RESPONSIVE TO STIMULI, NO DISTRESS NOTED, NEEDS MET, WILL ENDORSE TO ABALONE PROCESSOR NURSE.
--- NOTE | 2019-04-01 19:30 | NUR ---
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
[2019-04-01 19:52] VITALS: BP_SYST 125
[2019-04-01] MEDS: 0.45% NACL 1,000 ML IV SCH ×2 (20:13→23:05)
[2019-04-01] MEDS: ATORVASTATIN 10 MG TABLET PO SCH (20:15)
[2019-04-01] MEDS: DONEPEZIL HCL 5 MG TABLET (ARICEPT) PO SCH (20:15)
--- NOTE | 2019-04-01 20:15 | NUR ---
Medications Administered scheduled medications, patient took medications whole and tolerated well, safety, fall, and aspiration precautions in place, call light with the patient, will continue to monitor.
--- NOTE | 2019-04-01 23:45 | NUR ---
IV RE-INSERTION: IV site infiltrated. Discontinued right AC IV, catheter tip intact, placed a gauze dressing and there was no active bleeding at the site, restarted on left upper arm 22 gauge. Successful after 3 attempts. Resumed current IVF of 1/2 NS and regulated @ 75mL per hour. Will observe for any signs of infiltration.
[2019-04-02] MEDS: NORMAL SALINE 5 ML DISP.SYRIN IVF SCH ×3 (00:03→22:43)
[2019-04-02 00:53] VITALS: BP_SYST 133
--- NOTE | 2019-04-02 02:14 | NUR ---
Rounds: Patient is resting in bed asleep, does not show any acute distress. Even, unlabored breathing on room air. IV fluids infusing well to JOANN IV site, no infiltration noted. Call light is with patient, safety, fall, aspiration, contact iso precautions in place. Will continue monitoring.
--- NOTE | 2019-04-02 05:00 | NUR ---
RN Rounds Patient resting in bed, eyes closed, breathing is even and unlabored, no signs of acute distress, IV fluids infusing well, bed brakes on and bed in lowest position, bed alarm on, safety and fall precautions in place, call light next to patient, will continue to monitor.
--- NOTE | 2019-04-02 06:31 | NUR ---
Closing Note Patient resting in bed, awake, no acute distress, even and unlabored breathing, patient on room air, IV fluids infusing well, no signs of infiltration at the IV site, provided incontinence care, patient had one void and one BM, all needs met, call light with patient, safety, fall, aspiration, and isolation precautions maintained, hourly rounding done throughout shift, will endorse care to day shift RN.
[2019-04-02 08:00] VITALS: BP_SYST 157
--- NOTE | 2019-04-02 08:00 | NUR ---
ASSUMPTION OF CARE: RECEIVED PT A/A/OX 2-3, CITIZEN OF [place] SPEAKING, BUT UNDERSTANDS ITALIAN, ABLE TO COMMUNICATED NEEDS. DX: RISK FOR INJURY, R/T SEPSIS, L KNEE FX, VSS, LEFT KNEE HAS LONG CAST IN PLACE, NEURO CHECK DONE, PULSES PALPABLE, ABLE TO WIGGLE TOES, SKIN WARM, DRY TO TOUCH, BREATHING UNLABORED, BREATH SOUNDS ARE CLEAR, NO S/S OF DISTRESS, O2 SAT=96% ORA, DENIES HAVING PAIN, ORIENTED TO CALL LIGHT, PLACED WITHIN REACH, ROOM CLOSE TO NURSES STATION, FREQUENT ROUNDING BY NURSE AND STAFF, WILL CONT' TO MONITOR AND ASSESS.
--- NOTE | 2019-04-02 10:00 | NUR ---
CASHIER TICKET SELLING: MORNING MEDS GIVEN, PER ORDERED BY Piper, TOLERATED WELL, PT IS PARAGUAYAN, BUT UNDERSTANDS SOME CZECH, ABLE TO COMMUNICATE NEEDS, CALL LIGHT REMAINS WITHIN REACH, WILL CONT' TO MONITOR AND ASSESS.
[2019-04-02] MEDS: MEMANTINE HCL 5 MG TABLET PO SCH ×2 (10:14→22:43)
[2019-04-02] MEDS: LINEZOLID 300 ML IV SCH ×2 (10:14→22:42)
[2019-04-02] MEDS: amLODIPine BESYLATE 5 MG TABLET PO SCH (10:15)
[2019-04-02] MEDS: risperiDONE 0.25 MG TABLET (RisperDAL) PO SCH (10:16)
--- NOTE | 2019-04-02 12:00 | NUR ---
NURSES NOTES: PT REMAINS STABLE, NO SIGNIFICANT CHANGES NOTED, WILL CONT' TO MONITOR AND ASSESS.
[2019-04-02 13:14] VITALS: BP_SYST 179
[2019-04-02 13:20] LABS: CREATININE, URINE 105.4 mg/dL; MICROALBUMIN URINE RANDOM 62.9 ug/ml (NOT ESTABLISHED)
[2019-04-02 13:21] LABS: MICROALBUMIN/CREAT RATIO, UR 59.7 MG/G CRE (0.0-30.0)
[2019-04-02] MEDS: cloNIDine HCL 0.1 MG TABLET PO PRN (13:44)
[2019-04-02] MEDS: 0.45% NACL 1,000 ML IV SCH (16:08)
[2019-04-02 17:10] VITALS: BP_SYST 146
[2019-04-02 17:19] LABS: ANION GAP 8 (5-15); CALCIUM 8.6 mg/dL (8.4-11.0); CHLORIDE 103 mmol/L (98-107); CREATININE 2.35 mg/dL (0.55-1.30); GLUCOSE 100 mg/dL (70-99); POTASSIUM 4.3 mmol/L (3.5-5.1); SODIUM SERUM 133 mmol/L (136-145); UREA NITROGEN, BLOOD 38 mg/dL (8-21)
--- NOTE | 2019-04-02 18:00 | NUR ---
END OF SHIFT: PT REMAINS STABLE AWAKE, RESPONSIVE TO STIMULI, NO DISTRESS NOTED, NEEDS MET, WILL ENDORSE TO ELECTRONICS WARFARE TECHNICIAN NURSE.
--- NOTE | 2019-04-02 19:52 | NUR ---
Opening Note Received report from day shift RN, patient resting in bed, eyes closed, no signs of distress, even and unlabored breathing on room air, IV fluids running per MD order, fall, safety, isolation and aspiration precautions in place, bed alarm on, locked and in lowest position, three side rails up, bed close to nursing station, call light with patient, will continue to monitor.
[2019-04-02 20:00] VITALS: BP_SYST 153
--- NOTE | 2019-04-02 21:27 | NUR ---
Dr. Dick: Received call from roll tender Dr. Dick. MD requested update regarding patient's BUN and creatinine. Reported to MD pertinent labs. Dr. Dick ordered a chemistry panel for the AM, made MD aware that a CMP is already ordered. No other orders received.
--- NOTE | 2019-04-02 21:41 | NUR ---
Dr. Obando: Spoke with MD over phone, made aware that patient is very agitated, attempting to get out of bed, and pulling on her IV tubing. Order received to apply bilateral soft wrist restraints. Verified by read-back, RN to input.
[2019-04-02] MEDS: ATORVASTATIN 10 MG TABLET PO SCH (22:43)
[2019-04-02] MEDS: DONEPEZIL HCL 5 MG TABLET (ARICEPT) PO SCH (22:43)
--- NOTE | 2019-04-03 | NUR ---
RN Rounds Patient resting in bed, eyes closed, even and unlabored breathing on room air, no signs of acute distress, IV fluids per MD order infusing well to IV site, restraints in place and reinforced, bed locked and in lowest position, bed alarm on, bed close to nursing station, three side rails up, fall, safety, and isolation precautions in place, call light with patient, will continue to monitor.
[2019-04-03 00:26] VITALS: BP_SYST 154
--- NOTE | 2019-04-03 02:00 | NUR ---
RN Rounds Patient resting in bed, eyes closed, even and unlabored breathing on room air, no signs of acute distress, IV fluids infusing well to IV site, bilateral soft wrist restraints in place, no skin breakdown noted, bed locked and in lowest position, bed alarm on, bed close to nursing station, three side rails up, fall, safety, and isolation precautions in place, call light with patient, will continue to monitor.
--- NOTE | 2019-04-03 04:15 | NUR ---
RN Rounds Patient resting in bed, no signs of acute distress, eyes closed, even and unlabored breathing on room air, IV fluids infusing well to IV site, IV site is patent and benign, bilateral soft wrist restraints in place, no skin breakdown noted, bed locked and in lowest position, bed alarm on, bed close to nursing station, three side rails up, fall, safety, and isolation precautions in place, call light with patient, will continue to monitor.
[2019-04-03] MEDS: 0.45% NACL 1,000 ML IV SCH ×2 (05:22→14:49)
[2019-04-03] MEDS: NORMAL SALINE 5 ML DISP.SYRIN IVF SCH ×3 (05:48→21:47)
--- NOTE | 2019-04-03 06:00 | NUR ---
Spoke with granddaughter: Spoke with patient's granddaughter and person to notify Zoe Reed (phone number [phone]). Informed her that Dr. Obando had ordered to place bilateral soft wrist restraints for patient's agitation last night. Granddaughter does not have any objections to use of restraints. Discussed with family member current plan of care, answered all questions and concerns.
[2019-04-03 06:28] LABS: ALANINE AMINOTRANSFERASE 14 U/L (12-78); ALBUMIN 2.4 g/dL (3.4-4.8); ANION GAP 5 (5-15); ASPARTATE AMINOTRANSFERASE 24 U/L (10-37); CALCIUM 8.6 mg/dL (8.4-11.0); CHLORIDE 104 mmol/L (98-107); CREATININE 2.46 mg/dL (0.55-1.30); GLUCOSE 87 mg/dL (70-99); SODIUM SERUM 135 mmol/L (136-145); TOTAL BILIRUBIN 0.3 mg/dL (0.0-1.0); UREA NITROGEN, BLOOD 37 mg/dL (8-21)
[2019-04-03 06:45] LABS: BASOPHILS # (AUTO) 0.1 K/uL (0.0-0.2); EOSINOPHILS # (AUTO) 0.3 K/uL (0.0-0.4); EOSINOPHILS % (AUTO) 3.5 % (0.0-4.0); HEMATOCRIT 34.1 % (36-48); HEMOGLOBIN 11.3 g/dL (12.0-16.0); LYMPHOCYTES # (AUTO) 1.5 K/uL (1.0-5.5); LYMPHOCYTES % (AUTO) 17.6 % (20.5-51.5); MEAN CORPUSCULAR HEMOGLOBIN 30 pg (27-31); MEAN CORPUSCULAR HGB CONC 33 % (32-36); MEAN CORPUSCULAR VOLUME 90 fL (79.0-98.0); MONOCYTES # (AUTO) 0.7 K/uL (0.0-1.0); MONOCYTES % (AUTO) 8.2 % (1.7-9.3); NEUTROPHILS # (AUTO) 5.9 K/uL (1.8-7.7); NEUTROPHILS % (AUTO) 69.7 % (40.0-70.0); PLATELET COUNT (AUTO) 286 K/uL (130-430); RED CELL DISTRIBUTION WIDTH 14.1 % (9.0-15.0); WHITE BLOOD COUNT (AUTO) 8.5 K/uL (4.8-10.8)
--- NOTE | 2019-04-03 06:48 | NUR ---
Closing Note Patient resting in bed, awake, no signs of acute distress, even and unlabored breathing on room air, IV fluids infusing well to IV site, IV site is patent and benign, bilateral soft wrist restraints in place, no skin breakdown noted, all needs met, bed locked and in lowest position, bed alarm on, bed close to nursing station, three side rails up, fall, safety, and isolation precautions in place, call light with patient, will endorse report to day shift RN.
--- NOTE | 2019-04-03 07:30 | NUR ---
INITIAL NOTE PT AWAKE, DENIES ANY PAIN OR DISCOMFORT. IVF INFUSING WELL. CALL LIGHT WITHIN REACH, BED IN LOW AND LOCKED POSITION. ISOLATION PRECAUTIONS IN PLACE.
[2019-04-03 08:00] VITALS: BP_SYST 174
[2019-04-03] MEDS: LINEZOLID 300 ML IV SCH ×2 (08:24→21:45)
[2019-04-03] MEDS: risperiDONE 0.25 MG TABLET (RisperDAL) PO SCH (08:25)
[2019-04-03] MEDS: MEMANTINE HCL 5 MG TABLET PO SCH ×2 (08:25→21:45)
[2019-04-03] MEDS: amLODIPine BESYLATE 5 MG TABLET PO SCH (08:27)
--- NOTE | 2019-04-03 08:50 | NUR ---
PHYSICAL THERAPY UP WITH PHYSICAL THERAPY. PT TOLERATED WELL. DENIES ANY PAIN OR DISCOMFORT.
--- NOTE | 2019-04-03 09:30 | NUR ---
RN ROUNDS PT RESTING IN BED, NO ACUTE DISTRESS NOTED, BREATHING EVEN AND UNLABORED.
--- NOTE | 2019-04-03 11:30 | NUR ---
RN ROUNDS REPOSITIONED PT FOR COMFORT, PT TOLERATED WELL, WILL CONTINUE TO MONITOR.
--- NOTE | 2019-04-03 11:45 | NUR ---
DC Planning: discussed with dr. Obando, planing to dc pt to [facility]. Per family does not want pt returning back to [facility]. CM is to confirm with family. Addendum: 04/03/19 at 1239 by Fred Dan RN >> LVM to pt's son/Neil and s/w grand dtr/Zoe about dcp to [facility] per dr. Obando. Zoe agreed with the transfer to either [facility] or [facility]. Per Zoe, the pt was at [facility] in [facility] for about 1 year then move to [facility] due to no Hebrew/Hebrew speaking nurse to communicate with the pt. The pt was at the latter facility for about one week then admitted to [facility]. Dr. Obando plans to dc pt after pt has cast fitting done, tentatively by tomorrow Wednesday 04/04. Meanwhile, Vera, dcp is to send referral to [facility] and [facility] per dtr's request. She will also confirm with Wesley Farris for pt returning to the facility. -- BEAR Leonard made aware.
[2019-04-03 12:35] VITALS: BP_SYST 142
--- NOTE | 2019-04-03 13:30 | NUR ---
RN ROUNDS PT RESTING IN BED, NO ACUTE DISTRESS NOTED, BREATHING EVEN AND UNLABORED.
--- NOTE | 2019-04-03 14:39 | NUR ---
DR. MARISOL HOUSE AT BEDSIDE EXAMINING PT. INFORMED OF BUN 37, CRIT 2.46. MD TO CONTINUE CURRENT POC. Addendum: 04/03/19 at 1608 by Lois Perez RN CBC AND CMP TO BE DRAWN 04/04 IN THE AM.
--- NOTE | 2019-04-03 15:30 | NUR ---
RN ROUNDS PT RESTING, NO ACUTE DISTRESS NOTED, BREATHING EVEN AND UNLABORED
[2019-04-03 16:16] VITALS: BP_SYST 141
--- NOTE | 2019-04-03 17:30 | NUR ---
RN ROUNDS PT AWAKE, NO ACUTE DISTRESS NOTED, REPOSITIONED FOR COMFORT
--- NOTE | 2019-04-03 17:43 | NUR ---
Discharge Planning: DCP faxed pt referral to [place] ([phone] p [phone]) DCP to follow up.
[2019-04-03 18:05] VITALS: BP_SYST 142
--- NOTE | 2019-04-03 19:20 | NUR ---
CLOSING NOTE PT RESTING IN BED, NO ACUTE DISTRESS NOTED, IVF INFUSING WELL. ALL NEEDS MET THROUGHOUT SHIFT. ISOLATION PRECAUTIONS IN PLACE, CALL LIGHT WITHIN REACH, BED IN LOW AND LOCKED POSITION. PT CARE ENDORSED TO FILM REPRODUCER RN.
--- NOTE | 2019-04-03 20:00 | NUR ---
Received pt. in bed resting, calm and sleeping. Pt. awakened by Nurse touch and voice. Pt. looks confused and speaks Irish and Kinyarwanda. No s/s of sob. Breathing regular and unlabored. Pt. in Room Air. Chest expansion equal. No s/s of pain or discomfort. Pt. looks face and body looks/observe to be calm and comfortable. Assessment done from head to toe. Keep pt. safe, warm, clean and dry in bed. Pt. watch for safety with Bilateral soft wrist restraints released for 15 minutes. Pt. given active and passive ROM @ the bilateral upper extremities and turned pt. to the sides with pillow support @ the back. HOB UP @ 35-45 Degrees Angle. Pt. will be continuously watch for safety and comfort while in bed.
[2019-04-03] MEDS: ATORVASTATIN 10 MG TABLET PO SCH (21:45)
--- NOTE | 2019-04-03 21:45 | NUR ---
Due meds. given. Pt. able to take the meds. by mouth with HOB up @ 45 Degrees Angle. Pt. provided health teachings about the use/benefits of medications and able to understand and follow commands by verbal and non-verbal cues. Pt. keep clean, dry and business systems developer bed. No s/s of facial grimacing, no s/s of agitation or anxiousness and no s/s of moaning/crying. Pt. returned to sleep.
[2019-04-03] MEDS: DONEPEZIL HCL 5 MG TABLET (ARICEPT) PO SCH (21:46)
--- NOTE | 2019-04-04 | NUR ---
Pt. turned and repositioned in bed. BUE soft wrists Restrains released for 10-15 minutes. Pt. provided passive and active ROM, offered fluids and toileting. Scooted HOB up @ 35-45 minutes and keep pt. safe and maintenance equipment operator bed.
[2019-04-04 00:07] VITALS: BP_SYST 132
--- NOTE | 2019-04-04 02:00 | NUR ---
Pt. quiet, resting and sleeping calmly. No s/s of acute change. Turned/repositioned to the other side. Scooted HOB UP @ 45 Degrees Angle. Keep pt. clean, dry, safe and machines technician bed.
--- NOTE | 2019-04-04 04:00 | NUR ---
Pt. BUE soft wrist restraints released and provided pt. active and passive ROM exercises. Both arms and hands are positive + 2 pedal pulses. Pt. offered fluids and toileting. Restraints reenforced back and secured tightly to the sides of the bed. HOB up @ all times @ 35-45 degree angle. No s/s of acute change.
[2019-04-04] MEDS: 0.45% NACL 1,000 ML IV SCH ×2 (05:49→18:46)
[2019-04-04] MEDS: NORMAL SALINE 5 ML DISP.SYRIN IVF SCH ×3 (05:50→22:42)
[2019-04-04 06:32] LABS: BASOPHILS # (AUTO) 0.1 K/uL (0.0-0.2); EOSINOPHILS # (AUTO) 0.3 K/uL (0.0-0.4); EOSINOPHILS % (AUTO) 3.2 % (0.0-4.0); HEMATOCRIT 30.5 % (36-48); HEMOGLOBIN 10.5 g/dL (12.0-16.0); LYMPHOCYTES # (AUTO) 1.6 K/uL (1.0-5.5); LYMPHOCYTES % (AUTO) 18.5 % (20.5-51.5); MEAN CORPUSCULAR HEMOGLOBIN 31 pg (27-31); MEAN CORPUSCULAR HGB CONC 34 % (32-36); MEAN CORPUSCULAR VOLUME 90 fL (79.0-98.0); MONOCYTES # (AUTO) 0.5 K/uL (0.0-1.0); MONOCYTES % (AUTO) 5.9 % (1.7-9.3); NEUTROPHILS # (AUTO) 6.2 K/uL (1.8-7.7); NEUTROPHILS % (AUTO) 71.4 % (40.0-70.0); PLATELET COUNT (AUTO) 270 K/uL (130-430); RED BLOOD CELL COUNT(AUTO) 3.41 MIL/uL (4.2-6.2); RED CELL DISTRIBUTION WIDTH 14.2 % (9.0-15.0); WHITE BLOOD COUNT (AUTO) 8.6 K/uL (4.8-10.8)
[2019-04-04 06:49] LABS: ALANINE AMINOTRANSFERASE 17 U/L (12-78); ALBUMIN 2.2 g/dL (3.4-4.8); ANION GAP 10 (5-15); ASPARTATE AMINOTRANSFERASE 21 U/L (10-37); CHLORIDE 103 mmol/L (98-107); CREATININE 2.48 mg/dL (0.55-1.30); GLUCOSE 87 mg/dL (70-99); POTASSIUM 3.7 mmol/L (3.5-5.1); SODIUM SERUM 135 mmol/L (136-145); TOTAL BILIRUBIN 0.3 mg/dL (0.0-1.0); UREA NITROGEN, BLOOD 37 mg/dL (8-21)
[2019-04-04 09:50] VITALS: BP_SYST 134
[2019-04-04] MEDS: risperiDONE 0.25 MG TABLET (RisperDAL) PO SCH (09:54)
[2019-04-04] MEDS: LINEZOLID 300 ML IV SCH ×2 (09:54→21:00)
[2019-04-04] MEDS: MEMANTINE HCL 5 MG TABLET PO SCH ×2 (09:55→21:00)
[2019-04-04] MEDS: amLODIPine BESYLATE 5 MG TABLET PO SCH (09:59)
--- NOTE | 2019-04-04 10:21 | NUR ---
Discharge Planning: [facility][phone] p [phone]) RM 3A, DCP made CM aware. Addendum: 04/04/19 at 1104 by Vera Hartmann DP [place] ([phone] p [phone]) RM 3A, nurse made aware DC order needed. Addendum: 04/04/19 at 1227 by Vera Hartmann [facility] [place] ([phone] p [phone]) RM 3A, [facility] ([phone]) Will Call need DC order nurse made aware. patient packet taken to nurse station.
--- NOTE | 2019-04-04 12:26 | NUR ---
PHYSICAL THERAPY CO-SIGN The Physical Therapy Progress Notes documented by Deputy Probation Officer have been reviewed. Reviewed/Co-Signed by: Brannon Oscar PT Documentation Done by: SUREKHA PARRA PTA Addendum: 04/04/19 at 1228 by Brannon Oscar PT Amended: Links added.
--- NOTE | 2019-04-04 12:27 | NUR ---
PHYSICAL THERAPY CO-SIGN The Physical Therapy Progress Notes documented by Pump Technician have been reviewed. Reviewed/Co-Signed by: Brannon Oscar PT Documentation Done by: SUREKHA PARRA PTA Addendum: 04/04/19 at 1228 by Brannon Oscar PT Amended: Links added.
[2019-04-04 12:42] VITALS: BP_SYST 127
[2019-04-04 16:36] VITALS: BP_SYST 148
[2019-04-04] MEDS: ATORVASTATIN 10 MG TABLET PO SCH (21:00)
[2019-04-04] MEDS: DONEPEZIL HCL 5 MG TABLET (ARICEPT) PO SCH (21:00)
[2019-04-05] VITALS: BP_SYST 125
[2019-04-05 01:09] VITALS: BP_SYST 155
[2019-04-05] MEDS: NORMAL SALINE 5 ML DISP.SYRIN IVF SCH ×3 (06:56→21:14)
[2019-04-05 08:00] VITALS: BP_SYST 155
--- NOTE | 2019-04-05 08:00 | NUR ---
Patient is calm and resting, but confused. IV on left upper arm, #20, infusing 1/2 NS. With bilat wrist restraints. Three side rails up, bed close to nursing station, call light with patient, will continue to monitor
[2019-04-05] MEDS: MEMANTINE HCL 5 MG TABLET PO SCH ×2 (08:32→21:13)
[2019-04-05] MEDS: risperiDONE 0.25 MG TABLET (RisperDAL) PO SCH (08:33)
[2019-04-05] MEDS: amLODIPine BESYLATE 5 MG TABLET PO SCH (08:38)
[2019-04-05] MEDS: LINEZOLID 300 ML IV SCH ×2 (08:39→21:14)
[2019-04-05] MEDS: 0.45% NACL 1,000 ML IV SCH (08:40)
--- NOTE | 2019-04-05 11:12 | NUR ---
Dr. Gambino is called on when he will be coming. He said he will come after he finished surgery at 1500.
--- NOTE | 2019-04-05 12:00 | NUR ---
Patient is eating dinner by herself at this time.
[2019-04-05 12:09] VITALS: BP_SYST 160
--- NOTE | 2019-04-05 15:00 | NUR ---
Patient is turned and repositioned for comfort.
[2019-04-05 16:46] VITALS: BP_SYST 157
--- NOTE | 2019-04-05 17:50 | NUR ---
Nutrition F/U A - RD reviewed pertinent nutrition-related info via EMR (physician notes/nursing notes/labs/meds/nursing care trends/care activity). Admission Dx: L knee sepsis, schizophrenia, encephalopathy PMH: dementia, HTN, depression, hallucination, schizophrenia, CKD, COPD, cerebral ischemia, anxiety per physician notes Current Diet Order/Nutrition Support: CCHO x 1 day Ht: 59"/4'11" Wt: 95#/43 kg IBW: 98#/45 kg %IBW: 97% UBW: N/A %UBW: N/A BMI: 19.3 kg/m2 (underweight, low for geriatric age) Subjective Info: Pt was seen resting in bed, covered in blankets at time of RD visit. Pt was confused, and unable to answer RD verbal interview questions. Bedscale wt taken: 99# -- closely consistent w/ documented wt. RN stated that pt is eating ok, and pending rounds w/ Dr. Gambino for the dressing change. Current diet remains appropriate, though pt's appetite has seemed to decline. Per EMR, PO intake records indicate 50% average x18 meals. ESTIMATED NUTRITIONAL NEEDS CALORIES/DAY: 6720-7024 kcal/day (30-35 kcal/kg CBW for infection) PROTEIN/DAY: 52-65 gm/day (1.2-1.5 gm/kg CBW for infection) FLUID/DAY: 1-1.3 L/day (25-30 ml/kg CBW for geriatric maintenance) D - Increased nutritional needs related to metabolic demands as evidenced by estimated nutritional requirements for infection. I - Recommend [facility] diet w/ Glucerna BID (ONS provides 440 kcal/day, 20 gm protein/day). Encourage increase PO intakes. M - Monitor appetite and PO intakes w/ goal of pt meeting at least 85% of estimated nutritional needs, labs trending WNL, normal GI function, and skin integrity/wt maintenance E - Moderate Risk; F/U within 3-5 days
--- NOTE | 2019-04-05 17:55 | NUR ---
Dietitian Recommendations * [facility] w/ Glucerna BID (ONS provides 440 kcal/day, 20 gm protein/day). Encourage increase PO intakes. LP, RD Please refer to Nutrition F/U for details.
--- NOTE | 2019-04-05 18:00 | NUR ---
Dr. Gambino has not come yet. Dr. Gambino is paged, awaiting call back.
--- NOTE | 2019-04-05 19:35 | NUR ---
ROUNDS PATIENT IN BED, AWAKE, CONFUSED, VITALS STABLE, ON BILATERAL SOFT WRIST RESTRAINTS, NO SIGNS OF ANY PAIN AND DISCOMFORT NOTED. ASSESSMENT DONE AND DOCUMENTED. SEE FLOWSHEET. NEEDS ATTENDED TO. SAFETY AND FALL MEASURES IN PLACED. BED IN LOW AND LOCKED POSITION. WILL CONTINUE TO MONITOR.
--- NOTE | 2019-04-05 21:00 | NUR ---
MEDICATION DUE MEDICATIONS GIVEN SCHEDULED, TOLERATED WELL. WILL CONTINUE TO MONITOR.
[2019-04-05] MEDS: DONEPEZIL HCL 5 MG TABLET (ARICEPT) PO SCH (21:13)
[2019-04-05] MEDS: ATORVASTATIN 10 MG TABLET PO SCH (21:13)
--- NOTE | 2019-04-06 00:12 | NUR ---
PATIENT RESTING: Patient resting quietly. No acute distress noted. Vital signs within normal range.
[2019-04-06 01:19] VITALS: BP_SYST 137
--- NOTE | 2019-04-06 02:15 | NUR ---
ROUNDS PATIENT ASLEEP, RESPIRATIONS EVEN AND UNLABORED, WILL CONTINUE TO MONITOR.
--- NOTE | 2019-04-06 04:17 | NUR ---
PATIENT RESTING: Patient resting quietly. No acute distress noted. Vital signs within normal range.
[2019-04-18 09:56] LABS: ANION GAP 9 (5-15); CALCIUM 9.2 mg/dL (8.4-11.0); CHLORIDE 103 mmol/L (98-107); GLUCOSE 83 mg/dL (70-99); POTASSIUM 3.9 mmol/L (3.5-5.1); SODIUM SERUM 135 mmol/L (136-145); TOTAL BILIRUBIN 0.3 mg/dL (0.0-1.0); UREA NITROGEN, BLOOD 40 mg/dL (8-21)
[2019-04-18 09:57] LABS: ALANINE AMINOTRANSFERASE 28 U/L (12-78); ALBUMIN 2.7 g/dL (3.4-4.8); ASPARTATE AMINOTRANSFERASE 29 U/L (10-37); HEMATOCRIT 37.3 % (36-48); HEMOGLOBIN 12.1 g/dL (12.0-16.0); MEAN CORPUSCULAR HEMOGLOBIN 29 pg (27-31); MEAN CORPUSCULAR VOLUME 90 fL (79.0-98.0); RED BLOOD CELL COUNT(AUTO) 4.15 MIL/uL (4.2-6.2); WHITE BLOOD COUNT (AUTO) 7.9 K/uL (4.8-10.8)
[2019-04-18 09:58] LABS: BASOPHILS % (AUTO) 1.1 % (0.0-2.0); EOSINOPHILS % (AUTO) 4.6 % (0.0-4.0); LYMPHOCYTES % (AUTO) 17.3 % (20.5-51.5); MEAN CORPUSCULAR HGB CONC 32 % (32-36); MONOCYTES % (AUTO) 5.2 % (1.7-9.3); NEUTROPHILS % (AUTO) 71.8 % (40.0-70.0); PLATELET COUNT (AUTO) 285 K/uL (130-430); RED CELL DISTRIBUTION WIDTH 13.8 % (9.0-15.0)
== END 2019-04-06 20:53 | DRG 70 ==
LOC: SED 15:57 → SMU 21:57
PROVIDERS: ADMIT Internal Medicine; ATTEND Internal Medicine
DX: G93.41 Metabolic encephalopathy (principal); N17.0 Acute kidney failure with tubular necrosis; E43 Unspecified severe protein-calorie malnutrition; S82.002A Unspecified fracture of left patella, initial encounter for closed fracture; G45.9 Transient cerebral ischemic attack, unspecified; M86.8X6 Other osteomyelitis, lower leg; I42.9 Cardiomyopathy, unspecified; Z68.1 Body mass index [BMI] 19.9 or less, adult; Z66 Do not resuscitate; Z51.5 Encounter for palliative care; E86.0 Dehydration; F03.90 Unspecified dementia, unspecified severity, without behavioral disturbance, psychotic disturbance, mood disturbance, and anxiety; F41.9 Anxiety disorder, unspecified; N18.9 Chronic kidney disease, unspecified; E78.5 Hyperlipidemia, unspecified; F20.9 Schizophrenia, unspecified; I12.9 Hypertensive chronic kidney disease with stage 1 through stage 4 chronic kidney disease, or unspecified chronic kidney disease; J44.9 Chronic obstructive pulmonary disease, unspecified; Z79.899 Other long term (current) drug therapy; Z86.14 Personal history of Methicillin resistant Staphylococcus aureus infection; Z91.19 Patient's noncompliance with other medical treatment and regimen
CPT/HCPCS: 36415; 73560-TC; 76770; 80048; 80053; 80202-TC; 80307; 81000-TC; 82043; 82570; 82570-TC; 83735-TC; 84100-TC; 84302-TC; 84550-TC; 85025; 87040-TC; 87081; 93005; 97110-GP; 97530-GP; 99285; G0480; G0481; G0482; J2020; J2060; J3370; J7030; J7060

== ENCOUNTER 2019-06-23 20:06 | Inpatient (IN) | payer OTHER, BC ==
[~2019-06-23] VITALS: Ht 152.4 cm; Wt 44.0 kg
[~2019-06-23 20:06] MED LIST: ALBU2.5V7 INH; AMLO2.5T2 PO; DOCU-144 PO; DONE10TA44 PO; LIP10 PO; MEMA5TAB PO; MORP15TA PO; NA P133E41 RC; OMEG1CAP PO
[2019-06-23 20:10] VITALS: BP_SYST 162
--- NOTE | 2019-06-23 20:10 | NUR ---
Patient triaged in [address] and placed in [facility] [address] [facility]. VSS and patient appears in no acute distress at this time. Accompanied by ems , awaiting available bed, and Dr carty notified of need for MSE.
--- NOTE | 2019-06-23 21:15 | NUR ---
RAFAEL Sotelo examining patient.
--- NOTE | 2019-06-23 22:07 | NUR ---
Patient to ER bed 7 to gown for evaluation. Side rails up. Report given to Jame SIFUENTES.
--- NOTE | 2019-06-23 22:10 | NUR ---
pt brought in by [facility]. Pt awake, alert, confused and disoriented. Pt brought to ed from [facility] for re-evaluation of wound to L knee. [facility] states that patient recently had surgery to L knee and knee now has yellow foul smelling drainage through bandages. Pt is primarily guatemalan speaking, and states no pain at this time. Pt denies chest pain, nausea, vomiting, shortness of breath. Pt is currently afebrile. Pt denies any other medical complaint at this time. Pt resting in ed bed comfortably, no acute distress. Due to confusion, pt continues to try and exit bed, and ambulate without assistance, creating extreme fall risk. Pt monitored by myself and emt on duty. pt given blanket, clean sheets and gown for comfort. Pt vss.
[2019-06-23 23:01] LABS: BASOPHILS # (AUTO) 0.1 K/uL (0.0-0.2); BASOPHILS % (AUTO) 0.9 % (0.0-2.0); EOSINOPHILS # (AUTO) 0.3 K/uL (0.0-0.4); EOSINOPHILS % (AUTO) 3.8 % (0.0-4.0); HEMATOCRIT 38.1 % (36-48); HEMOGLOBIN 12.4 g/dL (12.0-16.0); LYMPHOCYTES # (AUTO) 2.1 K/uL (1.0-5.5); LYMPHOCYTES % (AUTO) 23.1 % (20.5-51.5); MEAN CORPUSCULAR HEMOGLOBIN 29 pg (27-31); MEAN CORPUSCULAR HGB CONC 33 % (32-36); MEAN CORPUSCULAR VOLUME 88 fL (79.0-98.0); MONOCYTES # (AUTO) 0.7 K/uL (0.0-1.0); MONOCYTES % (AUTO) 7.9 % (1.7-9.3); NEUTROPHILS # (AUTO) 5.8 K/uL (1.8-7.7); NEUTROPHILS % (AUTO) 64.3 % (40.0-70.0); PLATELET COUNT (AUTO) 292 K/uL (130-430); RED BLOOD CELL COUNT(AUTO) 4.34 MIL/uL (4.2-6.2); RED CELL DISTRIBUTION WIDTH 15.9 % (9.0-15.0)
--- NOTE | 2019-06-24 | NUR ---
Pt resting in ed bed comfortably. No acute distress.
--- NOTE | 2019-06-24 01:12 | NUR ---
Pt given juice and jello upon request.
[2019-06-24] MEDS ORDERED: PIPERACILLIN/TAZO 3.375 GM in NS 50 ML IV ONE (02:30)
--- NOTE | 2019-06-24 02:33 | NUR ---
Pt awake, alert, oriented. given crackers. resting comfortably, no acute distress.
[2019-06-24] MEDS ORDERED: MORPHINE 2 MG/ML INJ. SYRINGE IVP PRN ×2 (03:30)
[2019-06-24] MEDS ORDERED: PIPERACILLIN/TAZOBACTAM 3.375 GM/VIAL (ZOSYN) IV ONE (03:33)
--- NOTE | 2019-06-24 03:44 | NUR ---
Transfer to [facility]. IV present no sign or symptom of infiltration.
--- NOTE | 2019-06-24 03:44 | NUR ---
Patient will be admitted to care of . Admitted to Med/Surg unit. Will go to room 105A. Belongings list completed. Complete and up to date summary report printed. SBAR report to be given at bedside with opportunity for questions.
--- NOTE | 2019-06-24 04:15 | NUR ---
ADMISSION NOTE Received patient from ER via adrian, received report from BEAR TENORIO. Patient admitted with diagnosis of LEFT KNEE FRACTURE, OSTEOMYELITIS. Patient oriented to hospital routine, call light, toileting and safety. Belonging list done.
[2019-06-24 04:30] VITALS: BP_SYST 150
[2019-06-24] MEDS ORDERED: VANCOMYCIN HCL 1 GM/NS PREMIX 250 ML IV ONE (05:00)
--- NOTE | 2019-06-24 06:30 | NUR ---
Rounds/Pericare Pt awake/restless. Pt incontinent of urine/bm. Pericare provided. Pt repositioned. Kole heels floated on pillow. Safety maintained. To monitor.
--- NOTE | 2019-06-24 06:33 | NUR ---
CONSULT ID LEFT KNEE OSTEOMYELITIS DR GOODRICH.[facility] [id number] S/W ELIAZAR EXCHANGE
--- NOTE | 2019-06-24 06:35 | NUR ---
CONSULT ORTHO LEFT KNEE FRACTURE/OSTEOMYELITIS DR JULIAN [phone] DR MENDES SEISMOGRAPH OPERATOR S/W ELIAZAR EXCHANGE
--- NOTE | 2019-06-24 07:00 | NUR ---
Closing notes/Paged Paged Dr. Obando, mailbox full. Pt trying to get out of bed. Safety maintained. IV saline lock L FA 20 clear and patent secured with gauze. Awaiting Vancomycin from house sup. BEd low, locked, siderails up, bed alarm on. To endorse to AM nurse.
--- NOTE | 2019-06-24 07:04 | NUR ---
PAGED PAGED MICAH THOMPSON AT [phone] SPOKE WITH TEX.
[2019-06-24] MEDS ORDERED: VANCOMYCIN HCL 1000 MG/VIAL IV ONE (07:20)
--- NOTE | 2019-06-24 07:28 | NUR ---
AM ROUNDS: PATIENT AWAKE ,CONFUSED AND CANTONESE SPEAKING LADY. BILATERAL SOFT WRIST RESTRAINT ON.PATIENT TRYING TO GET OUT FROM BED AND REMOVED HER IV FROM NIGHT. IV WAS PLACED AND RUNNING WELL THIS TIME. BED LOCKED AT LOWEST POSITION. BED ALARM ON. CONTINUE TO MONITOR.
[2019-06-24 08:47] VITALS: BP_SYST 159
[2019-06-24] MEDS ORDERED: ALBUTEROL SULFATE 0.083% 2.5 MG/3 ML VIAL.NEB INH PRN (09:00)
[2019-06-24 09:04] LABS: ANION GAP 8 (5-15); CALCIUM 9.8 mg/dL (8.4-11.0); CHLORIDE 102 mmol/L (98-107); CREATININE 1.23 mg/dL (0.55-1.30); GLUCOSE 105 mg/dL (70-99); POTASSIUM 3.6 mmol/L (3.5-5.1); SODIUM SERUM 136 mmol/L (136-145); UREA NITROGEN, BLOOD 19 mg/dL (8-21)
--- NOTE | 2019-06-24 09:12 | NUR ---
CONSULTATION PAGED REASON FOR CONSULTATION:LEFT KNEE FRACTURE WAS CONSULT CALLED?Y PERSON WHO WAS NOTIFIED:JORY CONSULTING PHYSICIAN:GUTIERREZ TURNER ( MANAGER ICU) FARM OPERATIONS MANAGER SPECIALTY:ORTHO FARM OPERATIONS MANAGER PHONE NUMBER:[phone] ORDERING PHYSICIAN:MICAH THOMPSON
[2019-06-24] MEDS ORDERED: OMEGA-3/DHA/EPA/FISH OIL 1 GM CAPSULE PO ONE (09:15)
[2019-06-24] MEDS ORDERED: amLODIPine BESYLATE 5 MG TABLET PO ONE (09:15)
[2019-06-24] MEDS ORDERED: MEMANTINE HCL 5 MG TABLET PO ONE (09:15)
[2019-06-24] MEDS ORDERED: DOCUSATE SODIUM 100 MG CAPSULE PO ONE (09:15)
--- NOTE | 2019-06-24 09:17 | NUR ---
Nutrition Update Alexis Scale 13 noted. Pt admitted for L knee patella fracture/osteomyelitis. Diet: CCHO, mechanical soft BMI: 18.9 kg/m2 RD to follow per nutrition care standards.
[2019-06-24 10:00] VITALS: BP_SYST 159
--- NOTE | 2019-06-24 10:25 | NUR ---
IV PULLED OUT: PATIENT BIT HER TUBINGS AND WAS CUT OFF. IV WAS OUT. IV RE SITED BY ARACELI,AT RIGHT UPPER ARM USING G#22.STABLE THIS TIME.
[2019-06-24 11:30] VITALS: BP_SYST 145
[2019-06-24] MEDS: PIPERACILLIN/TAZOBACTAM 2.25 GM/ D5W 50 ML IV SCH ×6 (12:16→23:05)
--- NOTE | 2019-06-24 12:30 | NUR ---
LUNCH: OFF BILATERAL SOFT WRIST RESTRAINT X 10MINS,ASSISTED PATIENT DURING LUNCH. EAT WELL. THEN PUT BACK SOFT WRIST RESTRAINT ON BOTH HANDS.
[2019-06-24] MEDS ORDERED: PIPERACILLIN/TAZO 3.375/DEX-IS 50 ML IV SCH (14:00)
--- NOTE | 2019-06-24 14:35 | NUR ---
RN ROUNDS; PATIENT HAD LARGE SOFT BROWN STOOLS. CARE RENDERED.
[2019-06-24 15:55] VITALS: BP_SYST 130
--- NOTE | 2019-06-24 16:35 | NUR ---
RN ROUNDS: PATIENT MOVES AROUND.REPOSITIONED HER. NO ACUTE DISTRESS.
[2019-06-24] MEDS ORDERED: SODIUM PHOSPHATE,MONO-DIBASIC 133 ML ENEMA RC PRN (18:00)
--- NOTE | 2019-06-24 18:41 | NUR ---
CLOSING NOTES: PATIENT MOVES A LOT. BILATERAL SOFT WRIST RESTRAIN ON. IV ANTIBIOTICS GIVEN ORDERED. SAFETY MEASURES RENDERED. BED LOCKED AT LOWEST POSITION. BED ALARM ON. CONDITION GUARDED.
--- NOTE | 2019-06-24 18:53 | NUR ---
TELE PLACED: UP GRADED PATIENT TO TELEMETRY ORDERED.
[2019-06-24 19:50] VITALS: BP_SYST 158
--- NOTE | 2019-06-24 19:50 | NUR ---
INITIAL NOTES PATIENT IS LAYING IN BED AND STABLE. NO S/S OF RESPIRATORY DISTRESS. PATIENT UNSUCCESSFULLY DEMONSTRATES USAGE OF CALL LIGHT AT THIS TIME. WILL CONTINUE TO MONITOR. BED IS LOCKED, ALARMED, AND AT THE LOWEST POSITION. FALL, SAFETY, ASPIRATION, AND RESPIRATORY PRECAUTIONS WILL BE IN PLACE THROUGHOUT THE SHIFT. PLAN OF CARE IS DISCUSSED WITH PATIENT AT THIS TIME.
[2019-06-24] MEDS: MEMANTINE HCL 5 MG TABLET PO SCH (20:16)
[2019-06-24] MEDS: DONEPEZIL HCL 5 MG TABLET (ARICEPT) PO SCH (20:16)
[2019-06-24] MEDS: ATORVASTATIN 10 MG TABLET PO SCH (20:16)
[2019-06-24] MEDS: DOCUSATE SODIUM 100 MG CAPSULE PO SCH (20:16)
--- NOTE | 2019-06-24 21:50 | NUR ---
PATIENT TOOK OFF ONE OF HER RESTRAINTS AT THIS TIME. PATIENT TRIED TO GET OUT OF BED. PATIENT TRIED TO PULL HER IV. RE-ORIENTED PATIENT. ASSISTED PATIENT BACK TO BED. PATIENT IS STABLE. NO S/S OF RESPIRATORY DISTRESS NOTED. CALL LIGHT IN REACH. BED IS LOCKED, ALARMED AND AT THE LOWEST POSITION. PATIENT IS STABLE. NO S/S OF RESPIRATORY DISTRESS.
--- NOTE | 2019-06-24 22:30 | NUR ---
CHANGED PATIENT AT THIS TIME. PATIENT TOLERATED WELL. NO S/S FO RESPIRATORY DISTRESS NOTED. CALL LIGHT IN REACH. BED IS LOCKED, ALARMED, AND AT THE LOWEST POSITION.
[2019-06-25 00:13] VITALS: BP_SYST 132
--- NOTE | 2019-06-25 01:07 | NUR ---
PATIENT IS LAYING IN BED AND STABLE. NO S/S OF RESPIRATORY DISTRESS NOTED. CALL LIGHT IN REACH. BED IS LOCKED, ALARMED, AND AT THE LOWEST POSITION.
--- NOTE | 2019-06-25 03:06 | NUR ---
DR. Manuel GOODRICH BY BEDSIDE.
--- NOTE | 2019-06-25 04:06 | NUR ---
PATIENT IS STABLE. NO S/S OF RESPIRATORY DISTRESS NOTED. CALL LIGHT IN REACH. BED IS LOCKED, ALARMED, AND AT THE LOWEST POSITION.
[2019-06-25] MEDS: PIPERACILLIN/TAZOBACTAM 2.25 GM/ D5W 50 ML IV SCH ×8 (05:09→23:43)
--- NOTE | 2019-06-25 06:28 | NUR ---
CLOSING NOTES PATIENT IS LAYING IN BED AND STABLE. LAB IS BY BEDSIDE AT THIS TIME. NO S/S OF RESPIRATORY DISTRESS NOTED. CALL LIGHT IN REACH. BED IS LOCKED, ALARMED, AND AT THE LOWEST POSITION. FALL, SAFETY, CONTACT, ASPIRATION, AND RESPIRATORY PRECAUTIONS HAS BEEN IN PLACE THROUGHOUT THE SHIFT. WILL CONTINUE TO MONITOR UNTIL REPORT IS GIVEN/ENDORSED TO AM NURSE BY BEDSIDE.
--- NOTE | 2019-06-25 07:05 | NUR ---
Nutrition Update Alexis Scale 14 noted. Pt admitted for left Knee patella fracture/Osteomyelitis Diet: [facility] BMI: 18.9 kg/m2 RD to follow per nutrition care standards.
[2019-06-25 07:35] LABS: BASOPHILS % (AUTO) 0.3 % (0.0-2.0); EOSINOPHILS # (AUTO) 0.4 K/uL (0.0-0.4); EOSINOPHILS % (AUTO) 4.6 % (0.0-4.0); HEMATOCRIT 39.6 % (36-48); HEMOGLOBIN 12.7 g/dL (12.0-16.0); LYMPHOCYTES # (AUTO) 1.7 K/uL (1.0-5.5); LYMPHOCYTES % (AUTO) 17.7 % (20.5-51.5); MEAN CORPUSCULAR HEMOGLOBIN 29 pg (27-31); MEAN CORPUSCULAR HGB CONC 32 % (32-36); MEAN CORPUSCULAR VOLUME 89 fL (79.0-98.0); MONOCYTES # (AUTO) 0.8 K/uL (0.0-1.0); MONOCYTES % (AUTO) 8.6 % (1.7-9.3); NEUTROPHILS # (AUTO) 6.7 K/uL (1.8-7.7); NEUTROPHILS % (AUTO) 68.8 % (40.0-70.0); PLATELET COUNT (AUTO) 338 K/uL (130-430); RED BLOOD CELL COUNT(AUTO) 4.46 MIL/uL (4.2-6.2); RED CELL DISTRIBUTION WIDTH 16.2 % (9.0-15.0); WHITE BLOOD COUNT (AUTO) 9.7 K/uL (4.8-10.8)
[2019-06-25 07:39] LABS: INR 1.1 (0.8-1.2); PROTHROMBIN TIME 10.7 SECS (9.5-12.5)
[2019-06-25 08:00] LABS: ALANINE AMINOTRANSFERASE 22 U/L (12-78); ALBUMIN 3.7 g/dL (3.4-4.8); ANION GAP 11 (5-15); ASPARTATE AMINOTRANSFERASE 22 U/L (10-37); CALCIUM 9.6 mg/dL (8.4-11.0); CHLORIDE 101 mmol/L (98-107); CREATININE 1.26 mg/dL (0.55-1.30); GLUCOSE 75 mg/dL (70-99); POTASSIUM 3.8 mmol/L (3.5-5.1); SODIUM SERUM 138 mmol/L (136-145); TOTAL BILIRUBIN 0.8 mg/dL (0.0-1.0); UREA NITROGEN, BLOOD 22 mg/dL (8-21)
--- NOTE | 2019-06-25 08:00 | NUR ---
asleep when received anxious at times
--- NOTE | 2019-06-25 10:00 | NUR ---
breakfast served ate in small amount
[2019-06-25] MEDS: OMEGA-3/DHA/EPA/FISH OIL 1 GM CAPSULE PO SCH (10:20)
[2019-06-25] MEDS: DOCUSATE SODIUM 100 MG CAPSULE PO SCH ×2 (10:20→20:58)
[2019-06-25] MEDS: MEMANTINE HCL 5 MG TABLET PO SCH ×2 (10:21→20:58)
[2019-06-25] MEDS: amLODIPine BESYLATE 5 MG TABLET PO SCH (10:22)
[2019-06-25 11:48] VITALS: BP_SYST 130
[2019-06-25 13:34] VITALS: BP_SYST 130
--- NOTE | 2019-06-25 14:53 | NUR ---
asleep again seen by dr. vazquez no orders aware of her condition
[2019-06-25 16:11] VITALS: BP_SYST 112
[2019-06-25] MEDS ORDERED: VANCOMYCIN HCL 500 MG in NS 100 ML IV SCH (18:00)
--- NOTE | 2019-06-25 18:09 | NUR ---
remains in same condition wrist monitored
--- NOTE | 2019-06-25 19:30 | NUR ---
CHANGE OF SHIFT; pt. awake, being fed by MAINTENANCE SHOP LABORER. no acute distress. pt. Cantonese speaking. on bilateral soft wrist restraints. will assess later. on fall risk precautions. bed alarm on.
[2019-06-25 20:30] VITALS: BP_SYST 126
--- NOTE | 2019-06-25 20:30 | NUR ---
NOTES: VS checked. on cardia monitor shows sinus rhythm borderline sinus tach. IV on rt. upper arm, tko . S/P fracture left knee, noted some dry scabs on left knee. sequential on rt. leg. bilateral soft wrist maintained to prevent from pulling. pt/ close to nurses station, unable to use call light, frequent rounds.
[2019-06-25] MEDS: ATORVASTATIN 10 MG TABLET PO SCH (20:59)
[2019-06-25] MEDS: DONEPEZIL HCL 5 MG TABLET (ARICEPT) PO SCH (20:59)
--- NOTE | 2019-06-25 21:30 | NUR ---
NOTES: repositioned. due meds crushed and tolerated well. on room air, no shortness of breath.
--- NOTE | 2019-06-25 22:45 | NUR ---
NOTES: complete hs care done, incontinent of urine, macario care done, repositioned. pt. calm, able to turn to sides.
--- NOTE | 2019-06-26 00:30 | NUR ---
NOTES: condition observed. repositioned. bilateral soft wrist restraints intact. left knee/leg swollen and red. kept elevated with pillow.
--- NOTE | 2019-06-26 03:00 | NUR ---
NOTES: pt. cardiac pattern unchanged. continue to monitor.
[2019-06-26 04:00] VITALS: BP_SYST 144
--- NOTE | 2019-06-26 05:30 | NUR ---
NOTES: pt. gets incontinent, macario care and change pad. repositioned. pt. pretty quiet, went back to sleep.
[2019-06-26] MEDS: PIPERACILLIN/TAZOBACTAM 2.25 GM/ D5W 50 ML IV SCH ×2 (05:32)
--- NOTE | 2019-06-26 06:42 | NUR ---
CLOSING NOTES; pt. sleeping, bilateral soft wrist restraints maintained. IV site checked, flushed, IV antibiotic infusing. fall risk precautions. bed alarm on. for further care and assistance. remain sinus rhythm.
[2019-06-26 07:52] VITALS: BP_SYST 122
--- NOTE | 2019-06-26 08:00 | NUR ---
initial notes rec patient awake and being fed by the student nurse ledy well. resp easy and unlabored . no sob noted. bed to the lowest position. call light within reached and knows when to call for assistance. will continue to monitor patient.
[2019-06-26] MEDS: MEMANTINE HCL 5 MG TABLET PO SCH ×2 (10:00→21:05)
[2019-06-26] MEDS: OMEGA-3/DHA/EPA/FISH OIL 1 GM CAPSULE PO SCH (10:01)
[2019-06-26] MEDS: DOCUSATE SODIUM 100 MG CAPSULE PO SCH ×2 (10:01→21:05)
[2019-06-26] MEDS: amLODIPine BESYLATE 5 MG TABLET PO SCH (10:01)
--- NOTE | 2019-06-26 10:35 | NUR ---
rounds due meds were crushed and given and ledy well. no sob noted.
--- NOTE | 2019-06-26 11:56 | NUR ---
Wound Evaluation: Wound Consult ordered for Low Alexis Score. Patient evaluated for a low Alexis score of 14. Patient was awake, alert, confused, and received in a [place] Bed with an IsoFlex CORIE mattress with low air-loss therapy. Patient needs to be turned in bed. Recommend reposition patient every 2 hours with pillow support. Elevate, off-load and float bilateral heels with pillows. Offload pressure areas with pillows for pressure re-distribution. Perform skin care and monitor skin integrity Q shift. Use moisture barrier cream on moisture susceptible areas QID and PRN for soiling. Maintain patient on a low air-loss mattress. Skin assessment: 1. Left Knee: Chronic wound, present on admission. Site has 90% yellow scab, 10% brown scab. No odor, no drainage. Supriya-wound intact. Dry, stable. Site measures 3.0 cm x 0.8 cm. 2. Left Knee, Lateral to Site 1: Chronic wound, present on admission. Site has 100% yellow scab. No odor, no drainage. Supriya-wound intact. Dry, stable. Site measures 0.6 cm x 0.4 cm. Recommend: No dressing needed. Continue to monitor sites qshift. Contact wound care process manager if site opens or drains.
[2019-06-26 12:40] VITALS: BP_SYST 112
[2019-06-26] MEDS: cefTRIAXone 1 GM in D5W 50 ML IV SCH ×2 (14:03→14:04)
[2019-06-26 16:40] VITALS: BP_SYST 116
[2019-06-26 20:00] VITALS: BP_SYST 130
--- NOTE | 2019-06-26 20:00 | NUR ---
AWAKE, ALERT. SPEAKS CANTONESE. CONFUSED. RIGHT LEG SCD IN PLACE. SR.
[2019-06-26] MEDS: DONEPEZIL HCL 5 MG TABLET (ARICEPT) PO SCH (21:05)
[2019-06-26] MEDS: ATORVASTATIN 10 MG TABLET PO SCH (21:05)
--- NOTE | 2019-06-26 22:00 | NUR ---
ERIN SOFT WRIST RESTRAINTS ON FOR SAFETY. CIRCULATION CHECK DONE.
[2019-06-27 00:30] VITALS: BP_SYST 158
--- NOTE | 2019-06-27 01:30 | NUR ---
INCONTINENT OF STOOL AND URINE. CLEANED. BATHED. COMPLETE LINEN CHANGE. LEXI PROCEDURE WELL.
--- NOTE | 2019-06-27 01:41 | NUR ---
FOLLOW UP CONSULTATION PAGED/CALLED Reason for Consultation: LEFT KNEE FRACTURE/OSTEOMYELITIS Person Who was Notified: JOSEPH Consulting Physician: TERESA. DR. BARCLAY IS MELTER SUPERVISOR OPEN HEARTH FURNACE Steam Frame Operator Specialty: Ordering Physician: MARCO ANTONIO
--- NOTE | 2019-06-27 05:00 | NUR ---
INCONTINENT OF URINE AND STOOL. CLEANED. PARTIAL LINEN CHANGE DONE. LEXI WELL. PULSES PALPABLE. ATTEMPTS TO TAKE OFF RESTRAINTS.
--- NOTE | 2019-06-27 06:00 | NUR ---
RESTLESS. HANDS FIDGETY. RESTRAINTS IN PLACE. REMAINS IN GUARDED CONDITION.
[2019-06-27 08:00] VITALS: BP_SYST 167
--- NOTE | 2019-06-27 08:00 | NUR ---
initial notes awak elaert with ivl on the r upperarm intact. no infiltration noted. bed to the lowest position and side rails up and locked. chelsi restaints in place. no sob noted.
[2019-06-27] MEDS: DOCUSATE SODIUM 100 MG CAPSULE PO SCH ×2 (09:00→21:09)
[2019-06-27] MEDS: MEMANTINE HCL 5 MG TABLET PO SCH ×2 (10:00→21:09)
[2019-06-27] MEDS: amLODIPine BESYLATE 5 MG TABLET PO SCH (10:01)
[2019-06-27] MEDS: OMEGA-3/DHA/EPA/FISH OIL 1 GM CAPSULE PO SCH (10:02)
--- NOTE | 2019-06-27 11:00 | NUR ---
Discharge Planning: DCP faxed pt referral to [facility] (f [phone] p [phone]) DCP to follow up.
--- NOTE | 2019-06-27 12:00 | NUR ---
rounds eating lunch and ledy well. pt very confused and with chelsi restraints.
[2019-06-27] MEDS: cefTRIAXone 1 GM in D5W 50 ML IV SCH (14:03)
[2019-06-27 14:19] VITALS: BP_SYST 162
[2019-06-27 15:14] VITALS: BP_SYST 104
[2019-06-27 15:15] VITALS: BP_SYST 148
--- NOTE | 2019-06-27 18:30 | NUR ---
closing notes spoke with sharon ibrahim re patient. very confused and with chelsi restaints on. bed to the lowest position and side rails up and locked. call light within reached.
[2019-06-27 20:20] VITALS: BP_SYST 143
--- NOTE | 2019-06-27 20:20 | NUR ---
Opening notes Pt alert, awake, restless, trying to get out of bed. VSS, afebrile. Kole wrists restraints and mittens on. Safety maintained. Bed low, locked, siderails up, alarm on. Contact isolation maintained. To monitor.
--- NOTE | 2019-06-27 20:50 | NUR ---
Paged Nicolas Graham s/w Zandra
[2019-06-27] MEDS: ATORVASTATIN 10 MG TABLET PO SCH (21:09)
[2019-06-27] MEDS: DONEPEZIL HCL 5 MG TABLET (ARICEPT) PO SCH (21:09)
[2019-06-27] MEDS ORDERED: VANCOMYCIN HCL 750 MG in NS 250 ML IV ONE (23:00)
--- NOTE | 2019-06-27 23:30 | NUR ---
IV restart IV restarted L. FA 22G good blood return. Pt tolerated well. Will continue to monitor.
[2019-06-27] MEDS ORDERED: VANCOMYCIN HCL 1000 MG/VIAL IV ONE (23:38)
--- NOTE | 2019-06-28 02:45 | NUR ---
Rounds Pt awake, alert, calm. No s/s distress noted. IV saline lock left FA clear and patent. Safety maintained. Bed low, locked, siderails up, alarm on. To monitor.
--- NOTE | 2019-06-28 04:40 | NUR ---
Pericare Pt awake, confused. Incontinent of small bm and bladder. Pericare/skin care provided. Pt repositioned. Kole wrist restraints and mittens on. Contact isolation maintained. Safety maintained. To monitor.
--- NOTE | 2019-06-28 06:30 | NUR ---
Closing notes Pt alert, awake, confused, restless. IV saline lock L. FA 22G clear and patent. L. knee wound open to air. Pt on chelsi wrists restraints and mittens. Pt safety maintained. Bed low, locked, siderails up, bed alarm on. To endorse to AM nurse.
--- NOTE | 2019-06-28 07:25 | NUR ---
AM ROUNDS: PATIENT AWAKE DURING ROUNDS. CONTACT ISOLATION PRECAUTION RENDERED. LEFT KNEE WOUND OPEN TO AIR.BILATERAL SOFT WRIST RESTRAIN ON WITH MITTENS ON WELL. BILATERAL SCD'S ON LE. IV SALINE LOCK AT LEFT FOREARM. BED LOCKED AT LOWEST POSITION. BED ALARM ON. STABLE.
[2019-06-28 08:35] LABS: ANION GAP 9 (5-15); CALCIUM 9.5 mg/dL (8.4-11.0); CHLORIDE 105 mmol/L (98-107); CREATININE 1.08 mg/dL (0.55-1.30); GLUCOSE 89 mg/dL (70-99); POTASSIUM 3.8 mmol/L (3.5-5.1); SODIUM SERUM 139 mmol/L (136-145); UREA NITROGEN, BLOOD 21 mg/dL (8-21)
[2019-06-28 08:59] VITALS: BP_SYST 137
[2019-06-28] MEDS: DOCUSATE SODIUM 100 MG CAPSULE PO SCH ×2 (09:00→20:29)
[2019-06-28] MEDS: OMEGA-3/DHA/EPA/FISH OIL 1 GM CAPSULE PO SCH (09:00)
[2019-06-28] MEDS: MEMANTINE HCL 5 MG TABLET PO SCH ×2 (09:01→20:29)
[2019-06-28] MEDS: amLODIPine BESYLATE 5 MG TABLET PO SCH (09:01)
--- NOTE | 2019-06-28 09:01 | NUR ---
Med Pass: Due po meds given. Tolerated well. No adverse reactions noted.
--- NOTE | 2019-06-28 10:35 | NUR ---
Discharge Planning: Per [facility] (f [phone] p [phone]) patient is accepted at [facility]. DCP made CM aware, nurse not available.
[2019-06-28 11:14] VITALS: BP_SYST 137
--- NOTE | 2019-06-28 11:45 | NUR ---
Lunch: Assisted by back tender cylinder during lunch. Stable.
[2019-06-28] MEDS: VANCOMYCIN HCL 500 MG in NS 100 ML IV SCH (15:14)
--- NOTE | 2019-06-28 15:21 | NUR ---
Rn Rounds: Patient sleeping during rounds. Iv Vancomycin given as ordered. No problem.
[2019-06-28 15:30] VITALS: BP_SYST 137
--- NOTE | 2019-06-28 17:00 | NUR ---
MD ROUNDS: SPOKE WITH GRAND DAUGHTER SUKHWINDER GONZALEZ THIS AFTERNOON AND INFORMED CASE MGAntonio GUO REGARDING,WANTING PATIENT BACK TO [facility] INSTEAD OF [facility] AND [facility],SHE WILL CALL THE GRANDDAUGHTER WITH PHONE #[phone]. DR BERNARD CAME AND INFORMED HIM REGARDING THE DECISION OF THE PATIENT'S GRANDDAUGHTER SUKHWINDER.
--- NOTE | 2019-06-28 18:35 | NUR ---
CLOSING NOTES: PATIENT RESTING THIS TIME. BILATERAL SOFT WRIST RESTRAINT ON.BED LOCKED AT LOWEST POSITION. BED ALARM ON.BILATERAL SCD'S ON LE. SAFETY MEASURES RENDERED. CONDITION GUARDED.
--- NOTE | 2019-06-28 19:05 | NUR ---
OPENING NOTES PATIENT RESTING IN BED. BREATHING UNLABORED ON ROOM AIR. BED IN LOWEST LOCKED POSITION. CALL LIGHT WITH IN REACH. BED ALARM ON.
[2019-06-28 20:18] VITALS: BP_SYST 148
[2019-06-28] MEDS: DONEPEZIL HCL 5 MG TABLET (ARICEPT) PO SCH (20:29)
[2019-06-28] MEDS: ATORVASTATIN 10 MG TABLET PO SCH (20:29)
--- NOTE | 2019-06-28 20:29 | NUR ---
MED PASS PATIENT DUE MEDICATIONS GIVEN AND TOLERATED. VITAL SIGNS STABLE.
--- NOTE | 2019-06-28 22:30 | NUR ---
BM PATIENT HAD SOFT BOWEL MOVEMENT. INCONTINENCE CARE DONE. LINES CHANGED. SKIN CARE RENDERED. APPLIED Z GUARD TO SACRAL REDNESS.
--- NOTE | 2019-06-29 00:40 | NUR ---
ROUNDS PATIENT RESTING IN BED. N DISTRESS NOTED. VITAL SIGNS STABLE.
[2019-06-29 01:45] VITALS: BP_SYST 139
--- NOTE | 2019-06-29 03:18 | NUR ---
ROUNDS PATIENT EYES CLOSED. BREATHING UNLABORED ON ROOM AIR.
--- NOTE | 2019-06-29 06:57 | NUR ---
CLOSING NOTES PATIENT SAFETY MAINTAINED. CONDITION UNCHANGED. PATIENT NEEDS ATTENDED.
--- NOTE | 2019-06-29 07:25 | NUR ---
AM ROUNDS: PATIENT SLEEPING DURING ROUNDS. IV SALINE TERESA AT LEFT FOREARM INTACT. BILATERAL SOFT WRIST RESTRAINT AND MITTENS ON ORDERED.BED LOCKED AT LOWEST POSITION. BED ALARM ON. SAFETY MEASURES RENDERED. NO ACUTE DISTRESS.
[2019-06-29 08:25] VITALS: BP_SYST 124
[2019-06-29] MEDS: OMEGA-3/DHA/EPA/FISH OIL 1 GM CAPSULE PO SCH (09:07)
[2019-06-29] MEDS: MEMANTINE HCL 5 MG TABLET PO SCH ×2 (09:07→21:03)
[2019-06-29] MEDS: amLODIPine BESYLATE 5 MG TABLET PO SCH (09:07)
[2019-06-29] MEDS: DOCUSATE SODIUM 100 MG CAPSULE PO SCH ×2 (09:07→21:03)
--- NOTE | 2019-06-29 10:30 | NUR ---
Rn Rounds: Patient awake,moves around. Bilateral soft wrist restrain with mittens on. Continue to monitor.
[2019-06-29 12:00] VITALS: BP_SYST 119
--- NOTE | 2019-06-29 12:30 | NUR ---
Feeder: Patient fed by rubbish collection supervisor with assistance.Placed on semi estrella's position.Off bilateral soft wrist restraint during meal. Tolerated well. Then Soft wrist restraint placed after meal.No distress.
--- NOTE | 2019-06-29 14:20 | NUR ---
Nutrition F/U (short note d/t high patient load) RD reviewed pt's current EMR including diet Hx, physician notes, nursing notes, pertinent labs/meds/procedures, care trends, and care activity. Current Diet Order: CCHO, mechanical soft, Glucerna TID, Marquise BID Pt was seen resting in bed, seemingly confused w/ bilateral mittens. Pt noted as confused/disoriented per nursing notes. Per EMR, PO intake record average of 50% x15 meals. Bedscale wt taken: 94# -- wt seemingly stable compared to admission wt of 97#. Pt is not yet meeting optimal nutritional needs, however, current diet remains appropriate. Pt requires encouragement at meal times. Pt is at moderate nutritional risk; RD to F/U within 3-5 days.
[2019-06-29 14:44] LABS: CREATININE 1.4 mg/dL (0.55-1.30); VANCOMYCIN,TROUGH 12.4 ug/mL (5.0-10.0)
[2019-06-29] MEDS: VANCOMYCIN HCL 500 MG in NS 100 ML IV SCH (15:32)
[2019-06-29 16:00] VITALS: BP_SYST 138
--- NOTE | 2019-06-29 17:30 | NUR ---
Ortho rounds: Patient seen by Dr Gambino and evaluated patient.With new orders made.
--- NOTE | 2019-06-29 18:29 | NUR ---
End of Shift: Patient resting. Iv saline lock at Right forearm intact. Still on bilateral soft wrist restraint and mittens on.Bilateral scd's le. Bed locked at lowest position. Bed alarm on. Condition guarded.Contact isolation maintained.No acute distress.
[2019-06-29 20:00] VITALS: BP_SYST 147
--- NOTE | 2019-06-29 20:00 | NUR ---
ASSUMED CARE. RECEIVED AWAKE, ALERT,RESTLESS,VERY CONFUSED. AFEBRILE, NOT IN ACUTE DISTRESS. NO PAIN OR DISCOMFORT NOTED. WITH SALINE LOCK TO THE LEFT FOREARM # 22 INTACT. SAO2=96% ON ROOM AIR. BILATERAL SCD'S IN PLACE. SINUS RHYTHM @ 80-90/MIN.ON THE MONITOR. BILATERAL SOFT WRIST AND MITTENS IN PLACE. VS STABLE, WILL CONTINUE TO MONITOR. NEEDS ATTENDED.
[2019-06-29] MEDS: ATORVASTATIN 10 MG TABLET PO SCH (21:03)
[2019-06-29] MEDS: DONEPEZIL HCL 5 MG TABLET (ARICEPT) PO SCH (21:03)
--- NOTE | 2019-06-29 21:03 | NUR ---
DUE MEDICATIONS GIVEN SCHEDULED.
--- NOTE | 2019-06-30 | NUR ---
PT.NOTED TO BE MORE CALM,RESTING IN BED. NOT IN ANY KIND OF DISTRESS. NO PAIN OR DISCOMFORT NOTED. SIDE RAILS UP, CALL LIGHT WITHIN REACH. KEPT WARM AND COMFORTABLE. VS REMAIN STABLE. WILL CONTINUE TO MONITOR.
[2019-06-30 01:48] VITALS: BP_SYST 142
--- NOTE | 2019-06-30 02:30 | NUR ---
AWAKE, CALM. NOT IN ANY KIND OF DISTRESS. NO PAIN OR DISCOMFORT NOTED. WILL CONTINUE TO MONITOR.
--- NOTE | 2019-06-30 04:00 | NUR ---
AWAKE, NO SIGNIFICANT CHANGE. PT. REMAINS STABLE AND PAIN FREE.
--- NOTE | 2019-06-30 07:10 | NUR ---
LAB. TECH.AT BEDSIDE DRAWING BLOOD. ENDORSED CARE TO AM SHIFT BEAR ULLOA.
[2019-06-30 07:39] LABS: ANION GAP 7 (5-15); CALCIUM 9.3 mg/dL (8.4-11.0); CHLORIDE 108 mmol/L (98-107); CREATININE 1.46 mg/dL (0.55-1.30); GLUCOSE 89 mg/dL (70-99); POTASSIUM 4.2 mmol/L (3.5-5.1); SODIUM SERUM 140 mmol/L (136-145); UREA NITROGEN, BLOOD 35 mg/dL (8-21)
--- NOTE | 2019-06-30 08:00 | NUR ---
Initial note: Patient is alert, oriented x2, Mandarin speaker, on both wrist restraints, and both mittens. Both legs has SCDs on. Will continue monitor.
[2019-06-30 08:26] VITALS: BP_SYST 152
[2019-06-30] MEDS: MEMANTINE HCL 5 MG TABLET PO SCH (08:29)
[2019-06-30] MEDS: amLODIPine BESYLATE 5 MG TABLET PO SCH (08:29)
[2019-06-30] MEDS: OMEGA-3/DHA/EPA/FISH OIL 1 GM CAPSULE PO SCH (08:30)
[2019-06-30] MEDS: DOCUSATE SODIUM 100 MG CAPSULE PO SCH (08:30)
--- NOTE | 2019-06-30 08:30 | NUR ---
Breakfast: Patient is calm, release both restraints and stay in the room with her. She ate 75% of the tray independently, no sign of aspiration.
--- NOTE | 2019-06-30 10:00 | NUR ---
DC restraints: Patient is up and walks with PT in the room with a walker. She has BM ,loose greenish stool dropped on the way she walking. Give her a complete bed bath and change all linens. She is calm and cooperative. Remove all restraints. Put bed alarm on. Will continue monitor closely.
--- NOTE | 2019-06-30 10:27 | NUR ---
DC ordered: Dr. Obando is in the unit and has ordered to DC patient back to SNF with antibiotics per ID. Page Nicolas Graham for antibiotics.
[2019-06-30 11:00] VITALS: BP_SYST 152
[2019-06-30 12:24] VITALS: BP_SYST 145
--- NOTE | 2019-06-30 13:12 | NUR ---
ID round with I&D bedside: Dr. Swan makes round and performs I&D on left knee wound at bedside. He has ordered to apply Bactroban ointment to the knee daily. He also states OK to DC back to SNF with Antibiotics as ordered.
[2019-06-30] MEDS ORDERED: CLIN150C15 PO (13:29)
--- NOTE | 2019-06-30 13:36 | NUR ---
Discharge Planning: DCP faxed pt referral to [facility] (f [phone] p [phone]) DCP spoke to Jin Patient accepted to [facility], transportation arranged with [facility] ([phone]). Patient packet taken to nurse station nurse made aware. Addendum: 06/30/19 at 1628 by Vera Hartmann DP KHADAR put transportation on Will Call with [facility] ([phone]) for and Wednesday. [facility] (f [phone] p [phone]) could not accommodate ISO. Addendum: 06/30/19 at 1756 by Vera Hartmann DP KHADAR just spoke to Aisha SIFUENTES at [facility] (f [phone] p [phone]) she stated she is moving patients arranging for RM 26 for patient. I instructed her to call nurse station. DCP called patient nurse to make her aware, to follow up if no call back is made.
[2019-06-30] MEDS: CLINDAMYCIN HCL 150 MG CAPSULE PO SCH ×2 (13:53→18:15)
[2019-06-30] MEDS ORDERED: MUPIROCIN 2% TOPICAL OINTMENT 22 GM TP SCH (14:00)
[2019-06-30] MEDS: VANCOMYCIN HCL 500 MG in NS 100 ML IV SCH (15:55)
--- NOTE | 2019-06-30 16:28 | NUR ---
DC Planning: faxing revised dc order indicated no isolation room needed to Jin at [facility] [phone].
--- NOTE | 2019-06-30 16:31 | NUR ---
DC Isolation: Call and spoke to regarding Vancomycin IVPB, and inform him that there is no Isolation bed at a SNF. He has ordered to DC Vancomycin and DC Isolation.
[2019-06-30 16:54] VITALS: BP_SYST 137
--- NOTE | 2019-06-30 18:26 | NUR ---
Danii ([phone]) SET UP SURVEY TECHNICIAN GOING TO [facility] GOING TO ROOM 26 ETA 45MIN-1HOUR
[2019-06-30] MEDS ORDERED: BACTROBAN TP (18:36)
--- NOTE | 2019-06-30 18:47 | NUR ---
CALL AND GIVE REPORT TO KRYSTINA, A MANAGER COMMUNICATION AT [facility]. AND CALL SUKHWINDER GONZALEZ , PATIENT'S GRAND DAUGHTER, THAT PATIENT WILL BE TRANSFER BACK TO SNF AT 1900 TONIGHT.
--- NOTE | 2019-06-30 18:52 | NUR ---
DC TO SNS: [facility] HERE. PATIENT IS STABLE, IV SITE REMOVED WITH COMPLETE TIP REMOVED, APPLY PRESSURE DRESSING, NO SIGN OF BLEEDING. LEFT KNEE WOUND DRESSING WAS CHANGED WITH BACTROBAN OINTMENT ORDERED.
== END 2019-06-30 19:00 | DRG 872 ==
LOC: SED 20:06 → SMU 06-24 03:26 → STU 06-24 18:50 → SMU 06-30 15:57
PROVIDERS: ADMIT Internal Medicine; ATTEND Internal Medicine
DX: A41.9 Sepsis, unspecified organism (principal); S82.002A Unspecified fracture of left patella, initial encounter for closed fracture; L03.116 Cellulitis of left lower limb; L02.416 Cutaneous abscess of left lower limb; E78.5 Hyperlipidemia, unspecified; F03.90 Unspecified dementia, unspecified severity, without behavioral disturbance, psychotic disturbance, mood disturbance, and anxiety; F20.9 Schizophrenia, unspecified; F32.9 Major depressive disorder, single episode, unspecified; J44.9 Chronic obstructive pulmonary disease, unspecified; X58.XXXA Exposure to other specified factors, initial encounter; Z86.14 Personal history of Methicillin resistant Staphylococcus aureus infection; Z86.73 Personal history of transient ischemic attack (TIA), and cerebral infarction without residual deficits; Y93.89 Activity, other specified; Y92.89 Other specified places as the place of occurrence of the external cause; Y99.8 Other external cause status
CPT/HCPCS: 36415; 71045; 73560-TC; 80048; 80053; 80202-TC; 82565-TC; 84520-TC; 85025; 85610-TC; 85730-TC; 86140; 87040-TC; 87070-TC; 87081; 87186-TC; 94760; 96365; 99285; G0378; J0696; J2543; J3370; J7050; J7060